=== PATIENT | female | born 1960 | race Caucasian/White ===

== ENCOUNTER 2019-11-25 15:15 | Emergency (ER) | payer OTHER, SELFPAY ==
--- NOTE | 2019-11-25 16:07 | PC.NURSE ---
Call for patient, other visitors state the patient is outside smoking.
--- NOTE | 2019-11-25 16:30 | PC.NURSE ---
Call to waiting room, no answer.
--- NOTE | 2019-11-25 17:05 | PC.NURSE ---
Call to triage for a third time. No answer. Assume patient left without being seen prior to triage.
== END 2019-11-25 16:07 | disposition left against medical advice (07) ==
LOC: ANHED 17:12
PROVIDERS: PCP Physician Assistant
DX: Z53.21 Procedure and treatment not carried out due to patient leaving prior to being seen by health care provider (principal)
CPT/HCPCS: 99199

== ENCOUNTER 2020-01-06 17:15 | Emergency (ER) | payer OTHER, SELFPAY ==
[2020-01-06 17:29] VITALS: BP 107/76; PULSE 140; RESP 18; TEMP 37; O2SAT 98
--- NOTE | 2020-01-06 17:40 | ED.GENADULT ---
HPI - General Adult General Chief complaint: Extremity Injury, Lower Stated complaint: swollen in bilateral leg Time Seen by Provider: 01/06/20 17:40 Source: patient and RN notes reviewed Mode of arrival: ambulatory (with 3.5L of portable O2) Limitations: no limitations History of Present Illness HPI narrative: 59-year-old female presents with complains of being out of prescription Lasix for 3 days that has caused her to have swelling to bilateral lower extremities and shortness of breath for the past 2 days. No treatment. Symptoms has increased throughout the day even with increasing oxygen to 3.5 liters and elevating lower extremities. History of CHF. No known injury. No radiation of pain. No numbness or tingling, drainage, or bleeding. No loss of mobility. Exacerbating factor consist of ambulation. No fever or chills. Denies chest pain, headache, recent long car rides. Remains active. The patient reports she have not been diagnosed with COVID-19. The patient reports she is not waiting for the results of a COVID-19 lab test. The patient reports she do not have fever, chills, weakness, or fatigue. The patient reports she do not have a new or worsening cough or shortness of breath. Denies chest pain. The patient reports she do not have any rhinorrhea, congestion, loss of taste, sore throat, nausea, vomiting, abdominal pain, and diarrhea. Tolerating po intake well. Denies recent traveling. Denies concerns for COVID-19 or exposures been home with limited outdoor exposure except for essential household needs, work, and return home. At this time, patient is not suspected of having COVID-19. Some parts of this dictation were generated by voice recognition software and may contain typographical and/or grammatical inaccuracies. Related Data Home Medications Medication Instructions Recorded Confirmed Oxygen 3l 01/06/20 digoxin 01/06/20 fluoxetine mg 01/06/20 furosemide 01/06/20 gabapentin 01/06/20 hydroxyzine pamoate 01/06/20 lisinopril 01/06/20 pramipexole mg 01/06/20 pravastatin 01/06/20 warfarin 01/06/20 Allergies Allergy/AdvReac Type Severity Reaction Status Date / Time Penicillins Allergy Swelling Verified 01/06/20 18:05 of Lip/Tongue/Throat tramadol Allergy Swelling Verified 01/06/20 18:04 of Lip/Tongue/Throat Review of Systems Review of Systems: Narrative: CONSTITUTIONAL: Denies fever, chills, sweats. EYES: Denies visual changes, redness, discharge. ENT: Denies rhinorrhea, congestion, sore throat, otalgia. CARDIOVASCULAR: Denies chest pain, palpitations. Complaints of bilateral lower extremities edema. RESPIRATORY: Denies wheezing, cough. Complains of dyspnea. GASTROINTESTINAL: Denies abdominal pain, nausea, vomiting, diarrhea. GENITOURINARY: Denies dysuria, hematuria, abnormal discharge. SKIN: Denies rash or itching. MUSCULOSKELETAL: Denies acute back pain, joint pain, or myalgia. NEUROLOGIC: Denies numbness or focal weakness. PSYCHIATRIC: Denies anxiety or depression. All other systems reviewed & are unremarkable except as noted in HPI and below. [facility] Past Medical History Medical History (Updated 01/06/20 @ 18:10 by ALTA Plummer) Asthma Bipolar disorder Bronchitis COPD (chronic obstructive pulmonary disease) History of manic depressive disorder Hypercholesteremia Hypertension MVP (mitral valve prolapse) Surgical History Surgical History (Updated 01/06/20 @ 18:10 by ALTA Plummer) History of heart surgery valve replaced Family History Family History (Updated 01/06/20 @ 18:12 by ALTA Plummer) Father , cancer Lymph node cancer Mother , cancer-unknown Cancer Sibling , Cancer Lymph node cancer Social History Social History (Updated 01/06/20 @ 18:13 by ALTA Plummer) Smoking packs per day: 0.5 Smoking cigarettes per day: 10.0 Years smoked: 45 Smoking pac
== END 2020-01-06 17:47 | disposition left against medical advice (07) ==
PROVIDERS: Emergency Provider Nurse Practitioner Family; PCP Physician Assistant
DX: R60.0 Localized edema (principal); I50.9 Heart failure, unspecified; I11.0 Hypertensive heart disease with heart failure; F17.210 Nicotine dependence, cigarettes, uncomplicated; J44.9 Chronic obstructive pulmonary disease, unspecified; E78.00 Pure hypercholesterolemia, unspecified; I34.9 Nonrheumatic mitral valve disorder, unspecified; F31.9 Bipolar disorder, unspecified
CPT/HCPCS: 99211; G0463

== ENCOUNTER 2020-01-06 19:34 | Emergency (ER) | payer OTHER, SELFPAY ==
--- NOTE | ~2020-01-06 | XR_ITS ---
EXAMINATION: XR chest 1V portable INDICATION: Shortness of breath, congestive heart failure TECHNIQUE: Portable AP chest at 2021 hours COMPARISON: None available FINDINGS: Cardiomegaly is noted. There is a moderate diffuse interstitial pattern. No pleural effusio n or pneumothorax is identified. Median sternotomy wires are consistent with prior cardiac surgery. IMPRESSION: 1. Cardiomegaly with moderate pulmonary edema. Reviewed, dictated and finalized at location A.
[2020-01-06 19:39] VITALS: BP 120/96; PULSE 109; RESP 18; TEMP 36.7; O2SAT 95
--- NOTE | 2020-01-06 20:07 | ECG_ITS ---
Measurements Intervals [place] Rate: 116 P: MI: 0 QRS: 47 QRSD: 80 T: 58 QT: 304 QTc: 423 Interpretive Statements ATRIAL FIBRILLATION WITH RAPID VENTRICULAR RESPONSE VENTRICULAR PREMATURE COMPLEX ABNORMAL ECG Electronically Signed On 01-07-2020 6:39:57 CDT by Ramón Morales D.O.
--- NOTE | 2020-01-06 20:11 | ED.SOB ---
HPI - SOB/Dyspnea General Chief Complaint: Upper Respiratory Infection Stated Complaint: increased leg swelling/sob with ambulation Time Seen by Provider: 01/06/20 19:37 History of Present Illness HPI Narrative: Pt c/o increasing bilat lower ext edema and sob on exertion x 2 days. Pt states she as a h/o CHF, COPD and atrial fib. Pt denies any chest pain, fever or cough. Related Data Home Medications Medication Instructions Recorded Confirmed Oxygen 3l 01/06/20 digoxin 01/06/20 fluoxetine mg 01/06/20 furosemide 01/06/20 gabapentin 01/06/20 hydroxyzine pamoate 01/06/20 lisinopril 01/06/20 pramipexole mg 01/06/20 pravastatin 01/06/20 warfarin 01/06/20 Allergies Allergy/AdvReac Type Severity Reaction Status Date / Time Penicillins Allergy Swelling Verified 01/06/20 18:05 of Lip/Tongue/Throat tramadol Allergy Swelling Verified 01/06/20 18:04 of Lip/Tongue/Throat Review of Systems Review of Systems: All systems reviewed & are unremarkable except as noted in HPI and below Constitutional: Constitutional: Denies body ache(s), Denies chills, Denies excessive sweating, Denies fatigue, Denies fever(s), Denies headache(s), Denies lethargy, Denies malaise, Denies weakness and Denies weight loss Eyes: Eyes: Denies blurry vision, Denies change in vision and Denies loss of vision ENT: Denies dizziness, Denies ear discharge, Denies headache(s), Denies lip swelling, Denies epistaxis, Denies nasal congestion, Denies neck pain, Denies throat swelling and Denies tongue swelling Cardiovascular: Cardiovascular: Denies chest pain, Denies chest pain at rest, Denies chest pain with activity, Denies diaphoresis, Denies lightheadedness, Denies palpitations, Denies dyspnea and Denies dyspnea on exertion Respiratory: Respiratory: Denies chest congestion, Denies cough and Denies hemoptysis Gastrointestinal: Gastrointestinal: Denies abdominal pain, Denies melena, Denies hematochezia, Denies diarrhea, Denies nausea, Denies vomiting and Denies hematemesis Musculoskeletal: Musculoskeletal: Denies abnormal gait, Denies deformity, Denies joint swelling, Denies limited range of motion, Denies neck pain and Denies numbness Neurologic: Denies Abnormal speech present, Denies abnormal gait, Denies confusion, Denies dizziness, Denies headache(s), Denies focal weakness, Denies loss of vision, Denies numbness, Denies Other visual disturbances, Denies Sensory deficit (Neuro) and Denies weakness Psychiatric: Psychiatric: Denies confusion, Denies depression, Denies auditory hallucinations, Denies homicidal ideation and Denies suicidal ideation Endocrine: Endocrine: Denies cold intolerance, Denies excessive sweating, Denies fatigue, Denies heat intolerance and Denies palpitations Hematologic/Lymphatic: Hematologic/Lymphatic: Denies easy bleeding and Denies easy bruising Allergic/Immunologic: Allergic/Immunologic: Denies lip swelling, Denies throat swelling and Denies tongue swelling PMF Past Medical History Medical History (Updated 01/06/20 @ 22:52 by Rubens Phillips MD) Asthma Bipolar disorder Bronchitis COPD (chronic obstructive pulmonary disease) History of manic depressive disorder Hypercholesteremia Hypertension MVP (mitral valve prolapse) Surgical History Surgical History (Updated 01/06/20 @ 18:10 by ALTA Plummer) History of heart surgery valve replaced Family History Family History (Updated 01/06/20 @ 18:12 by ALTA Plummer) Father , cancer Lymph node cancer Mother , cancer-unknown Cancer Sibling , Cancer Lymph node cancer Social History Social History (Updated 01/06/20 @ 18:13 by ALTA Plummer) Smoking packs per day: 0.5 Smoking cigarettes per day: 10.0 Years smoked: 45 Smoking pack-years: 22.50 Smoking status: Current every day smoker Tobacco type: cigarettes Second hand tobacco smoke exposure: Yes Alcoho
[2020-01-06] MEDS: dilTIAZem HCl INJ 25 MG/5 ML VIAL 10 MG IV PUSH (20:21)
[2020-01-06] MEDS: FUROSEMIDE INJ 40 MG/4 ML VIAL 20 MG IV PUSH ×2 (20:21→23:00)
[2020-01-06 20:48] LABS: Basophils Absolute Auto 0.1 K/mm3 (0.0-0.1); Basophils Percent Auto 0.5 % (0.2-1.2); Eosinophils Absolute Auto 0.2 K/mm3 (0-0.3); Eosinophils Percent Auto 1.8 % (0-4.4); Hematocrit 30.5 % (37.0-47.0); Hemoglobin 9.6 g/dL (12.0-15.0); Immature Granulocyte Absolute 0.06 K/mm3 (0.00-0.031); Immature Granulocyte Percent A 0.6 % (0-0.5); Lymphocytes Absolute Auto 1.25 K/mm3 (0.9-3.2); Lymphocytes Percent Auto 11.6 % (18.3-44.2); Mean Corpuscular HGB Conc 31.5 g/dl (32-36); Mean Corpuscular Hemoglobin 29.1 pg (26-34); Mean Corpuscular Volume 92.4 fl (80-100); Mean Platelet Volume 9.6 fl (7.4-10.4); Monocytes Absolute Auto 0.8 K/mm3 (0.1-0.6); Monocytes Percent Auto 7.1 % (2.6-8.5); Neutrophils Absolute Auto 8.5 K/mm3 (1.3-6.7); Neutrophils Percent Auto 78.4 % (45.5-73.1); Platelet Count Result 337 k/mm3 (150-375); Red Cell Distribution Width 15.1 % (11.5-14.5); White Blood Count 10.8 K/mm3 (4.5-10.0)
[2020-01-06 20:58] VITALS: BP 116/71; PULSE 97; RESP 18; O2SAT 97
[2020-01-06 20:58] LABS: INR 2.8; Prothrombin Time 29.3 Seconds (11.1-14.7)
[2020-01-06 20:59] LABS: Partial Thromboplastin Time 34.7 SECONDS (22.3-36.8)
[2020-01-06 21:09] LABS: NT Pro B Type Natriuretic Pept 1430 PG/ML (5-100)
[2020-01-06 21:11] LABS: Troponin I 0.019 ng/mL (0.000-0.034)
[2020-01-06 22:03] VITALS: BP 118/83; PULSE 109; RESP 20; O2SAT 100
[2020-01-06 22:23] LABS: Alanine Aminotransferase 32 U/L (4-35); Albumin Level 4.2 g/dL (3.5-5.1); Alkaline Phosphatase 90 U/L (38-126); Anion Gap 5 mmol/L (8-16); Aspartate Amino Transferase 39 U/L (14-36); Bilirubin,Total 0.6 mg/dL (0.2-1.3); Blood Urea Nitrogen 21 mg/dL (7-17); Calcium 9.4 mg/dL (8.4-10.2); Carbon Dioxide 25 mmol/L (22-30); Chloride 104 mmol/L (98-107); Estimated CRCL calculation 71 ml/min; Estimated Glomerular Filt Rate > 60; Glucose 95 mg/dL (65-105); Potassium 3.8 mmol/L (3.4-5.0); Sodium 134 mmol/L (137-145)
[2020-01-06 23:06] VITALS: BP 108/72; PULSE 102; RESP 20; TEMP 36.4; O2SAT 97
== END 2020-01-06 23:07 | disposition left against medical advice (07) ==
PROVIDERS: Emergency Provider Emergency Medicine; PCP Physician Assistant
DX: I11.0 Hypertensive heart disease with heart failure (principal); I50.9 Heart failure, unspecified; J44.9 Chronic obstructive pulmonary disease, unspecified; E78.5 Hyperlipidemia, unspecified; R00.0 Tachycardia, unspecified; I48.91 Unspecified atrial fibrillation; Z79.01 Long term (current) use of anticoagulants
CPT/HCPCS: 36415; 71045; 80053; 83880; 84484; 85025; 85610; 85730; 93005; 96374; 96375; 96376; 99284; J1940

== ENCOUNTER 2020-01-12 17:29 | Inpatient (IN) | payer OTHER, SELFPAY ==
[2020-01-12] VITALS (17 sets, daily range): BP systolic 113–147; BP diastolic 66–99; PULSE 94–154; RESP 18–30; TEMP 36.5–36.9; O2SAT 97–100; BMI 30.7
--- NOTE | ~2020-01-12 | CT_ITS ---
EXAMINATION: CTA chest PE protocol DATE: 01/12/2020 20:45 INDICATION: Shortness of breath. Elevated d-dimer. TECHNIQUE: Computed tomography (CT) pulmonary angiogram of the chest was performed with 100 mL Omnipa que-350 intravenous contrast. The IV disconnected resulting in significant leakage of contrast on the first set of imaging. It is estimated that approximately 50 mL of the contrast bolus leaked resultin g in poor contrast opacification. Repeat CT images were obtained following demonstration of an additi onal 100 mL Omnipaque 350 intravenous contrast. Additional 3D reconstructions utilizing coronal maxim um intensity projection (MIP) were performed. Automated exposure control and iterative reconstruction technique were employed. The dose-length product was 900.80 mGy-cm. COMPARISON: None FINDINGS: Excellent contrast opacification of the pulmonary arteries on the second set of images with mild scat tered respiratory motion artifact which only mildly decreases sensitivity in some of the smaller subs egmental pulmonary arteries. No pulmonary embolism identified. Crazy paving pattern throughout both l ungs with mosaic attenuation and smooth septal line thickening most likely related to moderate pulmon jose luis edema. No pleural effusion or pneumothorax. Cardiomegaly. No pericardial effusion. Median sternot tonia and mitral valve repair. Aortic valve calcification. Lymphadenopathy most prominent in the medias tinum but also at the bilateral carolyn, along the bilateral jugular chains and at the left axilla. For reference there are a pair of right paratracheal lymph nodes measuring 3.3 x 2.8 cm and 3.1 x 2.2 cm. Thoracic aorta is normal in caliber with no dissection. Small sliding-type hiatal hernia. Visualized bones and upper abdomen are unremarkable. IMPRESSION: 1. No pulmonary embolism. 2. Groundglass opacities and smooth septal line thickening throughout the lungs consistent with moder ate pulmonary edema although superimposed pneumonia not excludable. 3. Mediastinal predominant thoracic lymphadenopathy raising concern for lymphoma. Differential would include reactive lymphadenopathy or other metastatic disease. Would consider further CT imaging of th e abdomen and pelvis and ultrasound-guided biopsy of one of the cervical or left axillary lymph nodes . 4. Cardiomegaly with change of prior mitral valve repair. Reviewed, dictated and finalized at location A. IMPRESSION: 1. No pulmonary embolism. 2. Groundglass opacities and smooth septal line thickening throughout the lungs consistent with moderate pulmonary edema although superimposed pneumonia not e xcludable. 3. Mediastinal predominant thoracic lymphadenopathy raising concern for lymphom a. Differential would include reactive lymphadenopathy or other metastatic dise ase. Would consider further CT imaging of the abdomen and pelvis and ultrasound -guided biopsy of one of the cervical or left axillary lymph nodes. 4. Cardiomegaly with change of prior mitral valve repair.
--- NOTE | ~2020-01-12 | XR_ITS ---
EXAMINATION: XR chest 1V portable DATE: 01/13/2020 17:06 INDICATION: COPD presenting with shortness of breath TECHNIQUE: frontal view of the chest was obtained. COMPARISON: Chest radiograph and CT dated 01/12/2020 FINDINGS: Kensinger mild opacities in the bilateral mid and lower lung zones. No pleural effusion or pneumothor ax. Cardiomegaly. Median sternotomy wires and mediastinal surgical clips are seen, likely from prior coronary artery bypass grafting. IMPRESSION: 1. Unchanged opacities in the mid to lower lung zones with appearance on prior CT favoring pulmonary edema over pneumonia. 2. Cardiomegaly. Reviewed, dictated and finalized at location A.
--- NOTE | ~2020-01-12 | XR_ITS ---
EXAMINATION: XR chest 2V DATE: 01/12/2020 18:37 INDICATION: Shortness of breath TECHNIQUE: frontal and lateral views of the chest were obtained. COMPARISON: Chest radiograph dated 01/06/2020 FINDINGS: Perihilar and infrahilar interstitial opacities. No pleural effusion or pneumothorax. Cardiomegaly. M fredian sternotomy wires and mediastinal surgical clips are seen, likely from prior coronary artery byp ass grafting. Bones and soft tissues are unremarkable. IMPRESSION: 1. Perihilar and infrahilar opacities could represent congestive heart failure related mild pulmonary edema, active airway disease, bronchitis or pneumonia. 2. Cardiomegaly. Reviewed, dictated and finalized at location A.
--- NOTE | 2020-01-12 17:35 | ECG_ITS ---
Measurements Intervals [place] Rate: 128 P: NC: 0 QRS: 32 QRSD: 80 T: 32 QT: 313 QTc: 457 Interpretive Statements ATRIAL FIBRILLATION WITH RAPID VENTRICULAR RESPONSE BASELINE WANDER- I, II, III, AVF, V1, V5-V6 ABNORMAL ECG Electronically Signed On 01-12-2020 21:05:12 CDT by Ramón Morales D.O.
[2020-01-12 17:54] LABS: Basophils Absolute Auto 0.1 K/mm3 (0.0-0.1); Basophils Percent Auto 0.5 % (0.2-1.2); Eosinophils Absolute Auto 0.2 K/mm3 (0-0.3); Eosinophils Percent Auto 1.8 % (0-4.4); Hematocrit 29.5 % (37.0-47.0); Hemoglobin 9.5 g/dL (12.0-15.0); Immature Granulocyte Absolute 0.04 K/mm3 (0.00-0.031); Immature Granulocyte Percent A 0.4 % (0-0.5); Lymphocytes Absolute Auto 1.45 K/mm3 (0.9-3.2); Lymphocytes Percent Auto 13.8 % (18.3-44.2); Mean Corpuscular HGB Conc 32.2 g/dl (32-36); Mean Corpuscular Hemoglobin 29.6 pg (26-34); Mean Corpuscular Volume 91.9 fl (80-100); Mean Platelet Volume 9.8 fl (7.4-10.4); Monocytes Absolute Auto 0.9 K/mm3 (0.1-0.6); Monocytes Percent Auto 8.6 % (2.6-8.5); Neutrophils Absolute Auto 7.8 K/mm3 (1.3-6.7); Neutrophils Percent Auto 74.9 % (45.5-73.1); Platelet Count Result 342 k/mm3 (150-375); Red Blood Count 3.21 M/mm3 (4.2-5.4); Red Cell Distribution Width 15.2 % (11.5-14.5); White Blood Count 10.5 K/mm3 (4.5-10.0)
[2020-01-12] MEDS: dilTIAZem HCl INJ 25 MG/5 ML VIAL 10 MG IV PUSH (18:10)
[2020-01-12 18:17] LABS: D Dimer 0.52 ug/mL (<0.48)
[2020-01-12 18:35] LABS: Anion Gap 7 mmol/L (8-16); Blood Urea Nitrogen 14 mg/dL (7-17); Calcium 9.4 mg/dL (8.4-10.2); Carbon Dioxide 24 mmol/L (22-30); Chloride 104 mmol/L (98-107); Estimated CRCL calculation 73 ml/min; Estimated Glomerular Filt Rate > 60; Glucose 115 mg/dL (65-105); Potassium 3.5 mmol/L (3.4-5.0); Sodium 135 mmol/L (137-145)
--- NOTE | 2020-01-12 19:14 | ED.GENADULT ---
HPI - General Adult General Chief complaint: Shortness of Breath/Dyspnea Stated complaint: SOB Time Seen by Provider: 01/12/20 17:42 Source: patient and EMS Mode of arrival: EMS History of Present Illness HPI narrative: 59 years old white female presents with increased shortness of breath over the last 2 days. Currently patient on 3 L of oxygen, quit smoking 3 days ago, history of COPD and CHF and A. fib, on Coumadin. Patient denies any fever, chills, nausea, vomiting, chest pain, headache, abdominal pain or back pain. Related Data Home Medications Medication Instructions Recorded Confirmed Oxygen 3l 01/06/20 digoxin 250 mcg PO DAILY 01/06/20 fluoxetine 20 mg PO 01/06/20 furosemide 40 mg PO 01/06/20 gabapentin 100 mg PO 01/06/20 hydroxyzine pamoate 25 mg PO 01/06/20 lisinopril 2.5 mg PO 01/06/20 pramipexole 0.125 mg PO 01/06/20 pravastatin 20 mg PO 01/06/20 warfarin 5 mg PO 01/06/20 Allergies Allergy/AdvReac Type Severity Reaction Status Date / Time Penicillins Allergy Swelling Verified 01/12/20 17:38 of Lip/Tongue/Throat tramadol Allergy Swelling Verified 01/12/20 17:38 of Lip/Tongue/Throat Review of Systems Review of Systems: Narrative: CONSTITUTIONAL: Denies fever, chills, or sweats. EYES: Denies visual changes, redness, or discharge. ENT: Denies rhinorrhea, congestion, sore throat, or otalgia. CARDIOVASCULAR: Denies chest pain, palpitations, or edema. RESPIRATORY: Denies cough or dyspnea. GASTROINTESTINAL: Denies abdominal pain, nausea, vomiting, or diarrhea. GENITOURINARY: Denies dysuria or hematuria. SKIN: Denies rash or itching. MUSCULOSKELETAL: Denies back pain, joint pain, or myalgia. NEUROLOGIC: Denies headache, numbness, or weakness. PSYCHIATRIC: Denies anxiety or depression. [facility] Past Medical History Medical History Asthma Bipolar disorder Bronchitis COPD (chronic obstructive pulmonary disease) History of manic depressive disorder Hypercholesteremia Hypertension MVP (mitral valve prolapse) Surgical History Surgical History History of heart surgery valve replaced Family History Family History Father , cancer Lymph node cancer Mother , cancer-unknown Cancer Sibling , Cancer Lymph node cancer Social History Social History Smoking packs per day: 0.5 Smoking cigarettes per day: 10.0 Years smoked: 45 Smoking pack-years: 22.50 Smoking status: Current every day smoker Tobacco type: cigarettes Second hand tobacco smoke exposure: Yes Alcohol intake: current Substance use: never Additional occupation/education comments: disable Gender identity (if verbalized by the patient): Female Exam Narrative: Exam Narrative: General appearance: Well-developed, well-nourished, very anxious, no significant other at the bedside Skin: Normal color, 1+ edema lower extremity bilaterally Head: Normocephalic, nontraumatic Eyes: Clear conjunctiva ENT: Oropharynx normal, ears normal, nose normal Neck: Supple, nontender Chest and respiratory: Airway patent, no respiratory distress, no accessory muscle use Heart: Tachycardia, irregular irregularity Abdomen: Soft, nontender, no organomegaly, quiet bowel sounds Vascular: Normal peripheral pulses, normal capillary refill. Musculoskeletal: Normal range of motion, nontender back Neurologic: Alert and oriented ?3, [employer] is normal as tested, no gross motor deficit Course Course Emergency [facility]
[2020-01-12 19:48] LABS: NT Pro B Type Natriuretic Pept 1740 PG/ML (5-100)
--- NOTE | 2020-01-12 20:11 | PM.IMHP ---
H&P: HPI History of Present Illness Date/Time: 01/12/20 20:11 Chief complaint: A. fib with RVR, CHF, COPD, anxiety Narrative: This is a pleasant 59 year old female with known chronic atrial fibrillation on chronic coumadin therapy, COPD, chronic respiratory failure on 3L of oxygen who presented to the hospital with increased exertional shortness of breath over the past 2 days. She was seen in the ER 5 days ago and diagnosed with pulmonary edema and LEFT AGAINST MEDICAL ADVICE. Today she denies any fever, chills, nausea, vomiting, cough, chest pain, wheezing, abdominal pain, dysuria, hematuria, diarrhea, or rectal bleeding. The patient admits to me that she missed 3 days of her coumadin therapy last week. The patient was evaluated in the ER tonight and found to be in rapid atrial fibrillation. ER provider obtained a d-dimer which was also elevated. CTA chest for pulmonary embolism has not been obtained yet. Patient has no other complaints at this time. Patient has been started on Cardizem IV for rate control. Review of Systems Review of Systems: All systems reviewed & are unremarkable except as noted in HPI and below PMFSH Past Medical History Medical History Asthma Bipolar disorder Bronchitis COPD (chronic obstructive pulmonary disease) History of manic depressive disorder Hypercholesteremia Hypertension MVP (mitral valve prolapse) Surgical History Surgical History History of coronary artery stent placement History of heart surgery valve replaced Family History Family History Father , cancer Lymph node cancer Mother , cancer-unknown Cancer Sibling , Cancer Lymph node cancer Social History Social History Smoking packs per day: 0.5 Smoking cigarettes per day: 10.0 Years smoked: 40 Smoking pack-years: 20.00 Smoking status: Current every day smoker Tobacco type: cigarettes Second hand tobacco smoke exposure: Yes Alcohol intake: never Substance use: never Additional occupation/education comments: disable Gender identity (if verbalized by the patient): Female Spiritual care concerns: No Meds Home Medications and Allergies Home Medications Medication Instructions Recorded Confirmed Type digoxin 250 mcg PO DAILY 01/06/20 01/12/20 History fluoxetine 20 mg PO DAILY 01/06/20 01/12/20 History furosemide 40 mg PO DAILY 01/06/20 01/12/20 History gabapentin 100 mg PO TID 01/06/20 01/12/20 History hydroxyzine pamoate 25 mg PO DAILY 01/06/20 01/12/20 History lisinopril 2.5 mg PO DAILY 01/06/20 01/12/20 History pramipexole 0.125 mg PO DAILY 01/06/20 01/12/20 History pravastatin 20 mg PO DAILY 01/06/20 01/12/20 History warfarin 5 mg PO DAILY 01/06/20 01/12/20 History Allergies Allergy/AdvReac Type Severity Reaction Status Date / Time Penicillins Allergy Swelling Verified 01/12/20 17:38 of Lip/Tongue/Throat tramadol Allergy Swelling Verified 01/12/20 17:38 of Lip/Tongue/Throat Vital Signs Vital Signs - 24 hr 01/12/20 17:27 01/12/20 17:36 01/12/20 18:02 Temperature 36.9 C Pulse Rate 154 H 128 H 132 H Respiratory Rate 25 H 22 H Blood Pressure 113/99 H 123/94 H Pulse Oximetry 100 100 01/12/20 18:16 01/12/20 18:36 01/12/20 18:46 Temperature Pulse Rate 114 H 114 H 98 Respiratory Rate 18 19 18 Blood Pressure 117/84 116/90 114/97 H Pulse Oximetry 100 100 01/12/20 19:01 01/12/20 19:16 Temperature Pulse Rate 106 H 111 H Respiratory Rate 19 18 Blood Pressure 118/80 135/94 H Pulse Oximetry 100 Exam Const: General: cooperative, no acute distress, alert and awake Nutritional Appearance: obese Orientation/consciousness: patient oriented x3 HENMT: Head: normal to inspection Gene
[2020-01-12] MEDS: FUROSEMIDE INJ 40 MG/4 ML VIAL IV PUSH (20:15)
--- NOTE | 2020-01-12 20:28 | PC.NURSE ---
Daughter Lissette Denise [phone] sifuentes to call her when the pt is moved to her room
[2020-01-12 20:58] LABS: INR 3.7; Prothrombin Time 36.1 Seconds (11.1-14.7)
[2020-01-12] MEDS: dilTIAZem HCl INJ 25 MG/5 ML VIAL (22:24)
[2020-01-12] MEDS: LORazepam INJ (*CRX) 2 MG/ML VIAL 1 MG IV PUSH (22:24)
--- NOTE | 2020-01-12 22:52 | ADMGEN ---
This patient, Angeles Fraire, was admitted to IMU Room 207-01. Patient/family oriented to hospital policies and general routines including ID bracelet, bed and alarms, visiting hours, pain management, procedures, bathroom and other care routines, personal items, smoking policy, room service/diet, and visiting hours. Valuables list has been completed. Information on how to activate the Rapid Response Team has been discussed. Patient/Family are encouraged to report perceived risks to care and to ask questions if they do not understand what they are told or what they should do.
[2020-01-13] VITALS (20 sets, daily range): BP systolic 96–131; BP diastolic 49–77; PULSE 81–105; RESP 18–24; TEMP 36.2–36.7; O2SAT 96–100
--- NOTE | 2020-01-13 | ECHO_ITS ---
Patient Info Name: Angeles Fraire Age: 59 years : 1960 Gender: Female Ht: 61 in Wt: 186 lbs BSA: 1.95 m2 HR: 89 bpm BP: 107 / 67 mmHg Heart Rhythm: Atrial Fibrillation Technical Quality: Good Exam Date: 01/13/2020 1:48 PM Exam Location: [facility] Patient Status: Inpatient Admit Date: 01/12/2020 Staff Ordering Physician: Jhon Beverly MD Search Engine Marketing Specialist: Lionel Quinonez, DAVI, RT Attending Provider: Brayden Sykes MD Exam Type: CA echo dop color flow w con Study Info Indications Z95.2 - Presence of prosthetic heart valve Complete two-dimensional, color flow and Doppler transthoracic echocardiogram is performed with contrast to opacify the left ventricle and to improve the deliniation of the left ventricle endocardial borders. Summary 1. Left ventricular systolic function is lower limits of normal, estimated at 50-55%. 2. E/e' 40.42 is severely elevated. 3. Left atrial chamber dimension is moderately enlarged. 4. The mechanical mitral valve leaflefts are not well visualized, however, leaflet excursion appears to be intact. Unable to estimate regurgitation due to reverberation artifact. 5. There is severe tricuspid valve regurgitation. 6. Severe pulmonary hypertension, estimated pulmonary arterial systolic pressure is 66 mmHg. 7. There is severe aortic valve stenosis with a peak velocity of 416.72 cm/s, mean gradient of 41 mmHg, and aortic valve area of 0.64 cm2. 8. There is mild aortic valve regurgitation. Left Ventricle Left ventricular systolic function is lower limits of normal, estimated at 50-55%. Left ventricular chamber dimension is normal. There is no increased left ventricular wall thickness. The left ventricular diastolic function is indeterminate. E/e' 40.42 is severely elevated. Right Ventricle Right ventricular chamber dimension is normal. Right ventricular systolic function is normal. Left Atria Left atrial chamber dimension is moderately enlarged. Right Atria Right atrial chamber dimension is mildly enlarged. Aortic Valve The aortic valve is trileaflet. There is severe aortic valve stenosis with a peak velocity of 416.72 cm/s, mean gradient of 41 mmHg, and aortic valve area of 0.64 cm2. There is mild aortic valve regurgitation. There is severe aortic valve calcification. Pulmonic Valve The pulmonic valve is normal. There is mild pulmonic regurgitation. Mitral Valve The mechanical mitral valve leaflefts are not well visualized, however, leaflet excursion appears to be intact. Unable to estimate regurgitation due to reverberation artifact. Tricuspid Valve The tricuspid valve leaflets are normal. There is severe tricuspid valve regurgitation. Severe pulmonary hypertension, estimated pulmonary arterial systolic pressure is 66 mmHg. Pericardium/Pleural The pericardium appears normal. There is no pericardial effusion. Inferior Vena Cava Dilated inferior vena cava with no collapse upon inspiration consistent with significantly elevated right atrial pressure, 15 mmHg. Aorta The aortic root size at the sinus of Valsalva is normal. There is severe aortic atherosclerosis. Left Ventricular Outflow Tract Name Value Normal LVOT 2D LVOT Diameter 1.97
[2020-01-13 03:34] LABS: Troponin I 0.022 ng/mL (0.000-0.034)
--- NOTE | 2020-01-13 08:47 | PM.CNCAR ---
Assessment and Plan Assessment and plan (1) Atrial fibrillation with rapid ventricular response: Code(s): I48.91 - Unspecified atrial fibrillation Status: Acute Assessment and Plan: 59-year-old female with history of mechanical mitral valve replacement (in 1991 in [place], [place] as per patient, operative report not available) and persistent atrial fibrillation on chronic anticoagulation with warfarin; COPD, chronic respiratory failure on 3L of oxygen, anxiety/depression, tobacco abuse. Patient presents with worsening shortness of breath, found to be in atrial fibrillation RVR, CHF, and acute worsening of chronic COPD. -current heart rates are in 90s, continue IV diltiazem, to be bridged to p.o. diltiazem or beta-diamond. Will check echocardiogram to assess LV function, mitral valve prosthesis. The choice of AV marla diamond will depend on patient's LV function. -continue p.o. digoxin for now -patient has been on chronic anticoagulation with warfarin -patient was advised to follow up in the outpatient cardiology clinic to reestablish cardiovascular care. She also needs to establish care with a primary care physician, and regional sales leader. (2) History of mitral valve replacement with mechanical valve: Code(s): Z95.2 - Presence of prosthetic heart valve Status: Acute Assessment and Plan: Check echocardiogram Continue anticoagulation with warfarin, target INR 2.5-3.5. Ideally, patient needs to be on low-dose aspirin regimen as well. (3) Congestive heart failure: Qualifiers: Heart failure chronicity: unspecified Heart failure type: unspecified Qualified Code(s): I50.9 - Heart failure, unspecified Code(s): I50.9 - Heart failure, unspecified Status: Acute Assessment and Plan: Continue diuresis with furosemide Check echocardiogram (4) COPD (chronic obstructive pulmonary disease): Qualifiers: COPD type: unspecified COPD Qualified Code(s): J44.9 - Chronic obstructive pulmonary disease, unspecified Code(s): J44.9 - Chronic obstructive pulmonary disease, unspecified Status: Chronic Assessment and Plan: Supplemental oxygen Patient advised to quit smoking (5) Tobacco abuse: Code(s): Z72.0 - Tobacco use Status: Acute Assessment and Plan: Smoking cessation counseling was done History of Present Illness History of Present Illness Consult date/time: 01/13/20 08:47 Date of service: 01/13/2020 Reason for consult: AFib with RVR Requesting physician:Dr Sykes Chief complaint: Worsening shortness of breath HPI: 59-year-old female with history of mechanical mitral valve replacement (in 1991 in [place], [place] as per patient, operative report not available) and persistent atrial fibrillation on chronic anticoagulation with warfarin; COPD, chronic respiratory failure on 3L of oxygen, anxiety/depression, tobacco abuse. Patient is originally from [place], [place]. She states that she moved to local area about a year ago to be with her friends. She has history of mechanical mitral valve replacement, and persistent atrial fibrillation, and has been on chronic anticoagulation with warfarin. She reports that she has not had regular follow-up with a insurance sales supervisor over the years. She presented to the [facility] on 01/12/2020 with worsening exertional shortness of breath over the past 2 days. She was seen in the ER on 01/06/2020 and left against medical advise. Patient has baseline dyspnea on exertion, able to walk heart block before she gets short of breath. No chest pain. No palpitation, dizziness or syncope. Patient's heart rate was elevated in the ER in 150s, blood pressure 113/99, respiratory rate 25, saturating 100% on supplemental oxygen. EKG on admission which I personally evaluated showed atrial fibrillation with RVR, ventricular rate 128 beats per minute. Prior EKG from 01/06/2020 also showed AFib with RVR. Daniel
[2020-01-13] MEDS: GABAPENTIN 100 MG CAPSULE PO ×3 (09:14→16:05)
[2020-01-13] MEDS: PRAMIPEXOLE 0.125 MG TABLET PO (09:14)
[2020-01-13] MEDS: PRAVASTATIN SODIUM 20 MG TABLET PO (09:14)
[2020-01-13] MEDS: FUROSEMIDE INJ 40 MG/4 ML VIAL IV PUSH ×2 (09:14→16:41)
[2020-01-13] MEDS: FLUoxetine HCL 20 MG CAPSULE PO (09:14)
[2020-01-13] MEDS: DIGOXIN 250 MCG TABLET PO (09:14)
[2020-01-13 09:22] LABS: Troponin I 0.027 ng/mL (0.000-0.034)
[2020-01-13] MEDS: ALPRAZolam (*CRX) 0.25 MG TABLET PO (13:04)
[2020-01-13] MEDS: PERFLUTREN LIPID MICROSPHERES 1.5 ML VIAL DILUTED TO 10 ML TOTAL VOLUME IV PUSH (14:28)
[2020-01-13] MEDS: WARFARIN (*PBKC) 4 MG TABLET PO (16:05)
[2020-01-13] MEDS: IPRATROPIUM BR 0.02% INH SOLN 0.5 MG/2.5 ML VIAL INHALATION (16:36)
[2020-01-13] MEDS: ALBUTEROL SULFATE NEB 2.5 MG/0.5 ML INH INHALATION (16:37)
[2020-01-13] MEDS: methylPREDNISolone SOD SUCC 125 MG VIAL IV PUSH (16:41)
[2020-01-13 16:45] LABS: Alveolar/Arterial O2 Gradient 76.5 mmHg; Base Excess ABG 1.4 mEq/l (+/-2.0); Device NASAL CANNULA; Fractional Inspired Oxygen 32 %; HCO3 ABG 25.2 mEq/l (22.0-26.0); Modified Allen's Test Pass; Oxygen Content ABG 14.5 %vol (16.0-22.0); Oxygen Saturation ABG 98.2 % (95.0-100.0); Oxyhemoglobin 96.9 % THb (90.0-100.0); PCO2 ABG 36.8 mmHg (35.0-45.0); PO2 ABG 108.6 mmHg (80.0-100.0); PO2 FiO2 Ratio Arterial Blood 3.39 %; Site Drawn RIGHT RADIAL; Total Hemoglobin 10.5 g/dL (12.0-18.0); pH ABG 7.454 (7.350-7.450)
[2020-01-13 17:00] LABS: Glucose Point of Care 112 (65-105)
--- NOTE | 2020-01-13 17:01 | PM.IMPN ---
Progress Note: A&P Assessment and Plan (1) Atrial fibrillation with rapid ventricular response: Code(s): I48.91 - Unspecified atrial fibrillation Status: Acute Assessment and Plan: Acute rapid atrial fibrillation it may be secondary to acute CHF exacerbation. Admit to IMU, telemetry, continue diltiazem IV drip for rate control overnight. Check TSH reflex T4, echocardiogram in a.m.. We will trend troponin to rule out concomitant acute coronary syndrome. The patient is already anticoagulated on Coumadin. Monitor PT INR. Continue Coumadin therapy. Continue digoxin therapy.Cardiology consultation in a.m.. 01/13/20 17:01 patient is 59-year-old female recently moved from [place] with history prosthetic mechanical mitral valve replacement on Coumadin for anticoagulation will monitor , patient has history of atrial fibrillation, COPD, CHF patient presented emergency department with shortness or breath and was found to have atrial fibrillation with RVR and started the patient on diltiazem drip and her heart rate is trending down to 90 patient is seen atomic spectroscopist and been stable heart rate will switch her over to oral medication, today patient had cardiac echo showed ejection fraction of 50-55% and indeterminate diastolic dysfunction, patient also has a history of chronic respiratory failure on 3 L oxygen, and history of COPD unfortunately patient still smoke, this afternoon patient was somnolent patient was evaluated and her lungs sounded with wheezing rales and rhonchi with fair air entry. ABG was done which showed pH of 7.454, CO2 36.8 and oxygen saturation of 108.6 on 3 L, patient is given IV Lasix 40 mg, Solu-Medrol 125 minutes and DuoNeb will continue to monitor and follow up on chest x-ray, patient also had a complaint of sore throat it does appears erythematous will start the patient on doxycycline (2) Acute CHF: Qualifiers: Heart failure type: unspecified Qualified Code(s): I50.9 - Heart failure, unspecified Code(s): I50.9 - Heart failure, unspecified Status: Acute Assessment and Plan: sodium prudent fluid restricted diet. Monitor fluid status. Continue Lasix therapy. CHF teaching. (3) Elevated d-dimer: Code(s): R79.89 - Other specified abnormal findings of blood chemistry Status: Acute Assessment and Plan: We will obtain a CTA with PE protocol to rule out acute pulmonary embolism. (4) COPD (chronic obstructive pulmonary disease): Qualifiers: COPD type: unspecified COPD Qualified Code(s): J44.9 - Chronic obstructive pulmonary disease, unspecified Code(s): J44.9 - Chronic obstructive pulmonary disease, unspecified Status: Chronic Assessment and Plan: We will use Xopenex as bronchodilator as the patient has rapid atrial fibrillation. (5) Hypertension: Qualifiers: Hypertension type: unspecified Qualified Code(s): I10 - Essential (primary) hypertension Code(s): I10 - Essential (primary) hypertension Status: Chronic Assessment and Plan: Monitor blood pressure. Continue home antihypertensives. (6) Hypercholesteremia: Code(s): E78.00 - Pure hypercholesterolemia, unspecified Status: Chronic Assessment and Plan: Continue pravastatin. Subjective Date/time seen: 01/13/20 17:01 patient is 59-year-old female recently moved from [place] with history prosthetic mechanical mitral valve replacement on Coumadin for anticoagulation will monitor , patient has history of atrial fibrillation, COPD, CHF patient presented emergency department with shortness or breath and was found to have atrial fibrillation with RVR and started the patient on diltiazem drip and her heart rate is trending down to 90 patient is seen atomic spectroscopist and been stable heart rate will switch her over to oral medication, today patient had cardiac echo showed ejection fraction of 50-55% and indeterminate diastolic d
[2020-01-13] MEDS: PHENOL/SOD PHENO SPRAY CHERRY (*BKC) 1 SPRAY MUCOUS MEM (17:44)
[2020-01-14] VITALS (21 sets, daily range): BP systolic 93–123; BP diastolic 61–83; PULSE 75–103; RESP 20–22; TEMP 35.7–36.7; O2SAT 96–100
[2020-01-14] MEDS: methylPREDNISolone SOD SUCC 125 MG VIAL 60 MG IV PUSH ×4 (01:07→17:28)
[2020-01-14 06:35] LABS: Hematocrit 30.9 % (37.0-47.0); Hemoglobin 9.7 g/dL (12.0-15.0); Mean Corpuscular HGB Conc 31.4 g/dl (32-36); Mean Corpuscular Hemoglobin 28.9 pg (26-34); Mean Platelet Volume 9.9 fl (7.4-10.4); Platelet Count Result 361 k/mm3 (150-375); Red Blood Count 3.36 M/mm3 (4.2-5.4); White Blood Count 6.8 K/mm3 (4.5-10.0)
[2020-01-14 06:40] LABS: INR 4.6; Prothrombin Time 42.5 Seconds (11.1-14.7)
[2020-01-14 06:49] LABS: Anion Gap 12 mmol/L (8-16); Blood Urea Nitrogen 23 mg/dL (7-17); Calcium 9.4 mg/dL (8.4-10.2); Carbon Dioxide 29 mmol/L (22-30); Chloride 101 mmol/L (98-107); Estimated CRCL calculation 52 ml/min; Estimated Glomerular Filt Rate 57; Glucose 154 mg/dL (65-105); Magnesium 1.6 mg/dL (1.6-2.3); Potassium 3.9 mmol/L (3.4-5.0); Sodium 142 mmol/L (137-145)
[2020-01-14] MEDS: PRAVASTATIN SODIUM 20 MG TABLET PO (09:15)
[2020-01-14] MEDS: DIGOXIN 250 MCG TABLET PO (09:15)
[2020-01-14] MEDS: GABAPENTIN 100 MG CAPSULE PO ×3 (09:16→17:28)
[2020-01-14] MEDS: FLUoxetine HCL 20 MG CAPSULE PO (09:16)
[2020-01-14] MEDS: PRAMIPEXOLE 0.125 MG TABLET PO (09:16)
[2020-01-14] MEDS: FUROSEMIDE INJ 40 MG/4 ML VIAL IV PUSH (09:17)
--- NOTE | 2020-01-14 11:50 | PM.PNCARD ---
Progress Note: A&P Assessment and Plan (1) Atrial fibrillation with rapid ventricular response: Code(s): I48.91 - Unspecified atrial fibrillation Status: Acute Assessment and Plan: 59-year-old female with history of mechanical mitral valve replacement (in 1991 in [place], [place] as per patient, operative report not available) and persistent atrial fibrillation on chronic anticoagulation with warfarin; COPD, chronic respiratory failure on 3L of oxygen, anxiety/depression, tobacco abuse. She presented with worsening shortness of breath, found to be in atrial fibrillation RVR, CHF, and acute worsening of chronic COPD. Echo 01/13/2020: 1. Left ventricular systolic function is lower limits of normal, estimated at 50-55%. 2. E/e' 40.42 is severely elevated. 3. Left atrial chamber dimension is moderately enlarged. 4. The mechanical mitral valve leaflefts are not well visualized, however, leaflet excursion appears to be intact. Unable to estimate regurgitation due to reverberation artifact. 5. There is severe tricuspid valve regurgitation. 6. Severe pulmonary hypertension, estimated pulmonary arterial systolic pressure is 66 mmHg. 7. There is severe aortic valve stenosis with a peak velocity of 416.72 cm/s, mean gradient of 41 mmHg, and aortic valve area of 0.64 cm2. 8. There is mild aortic valve regurgitation. Heart rate is controlled on IV diltiazem. Blood pressure on the soft side. Will discontinue the drip. Would like to transition her to oral diltiazem but will wait until the IV diltiazem has time to wash out. Recheck blood pressure this afternoon. Likely will start on short-acting and transition to long-acting diltiazem in the morning. She may have gotten a little dry as she is diuresed very well. Continue p.o. digoxin for now. She is on chronic anticoagulation with warfarin. Will arrange follow-up in our office with Dr Beverly. Our office will also follow her INRs. She also needs to establish care with a primary care physician, and employment specialist/program manager. (2) History of mitral valve replacement with mechanical valve: Code(s): Z95.2 - Presence of prosthetic heart valve Status: Acute Assessment and Plan: Echo as above. Continue anticoagulation with warfarin, target INR 2.5-3.5. INR elevated to 4.6 today. Will hold warfarin today. Check INR in the morning. May still need to decrease her dose. Would not hold her warfarin more than 1 day due to her mechanical mitral valve.She admits that she has not checked her INR in quite some time. Ideally, patient needs to be on low-dose aspirin regimen as well (3) Congestive heart failure: Qualifiers: Heart failure chronicity: unspecified Heart failure type: unspecified Qualified Code(s): I50.9 - Heart failure, unspecified Code(s): I50.9 - Heart failure, unspecified Status: Acute Assessment and Plan: Echocardiogram as above. She has put out more than 7 L on the IV diuretics. She may have gotten a little dry. With her severe aortic stenosis need to avoid hypotension. Stop IV diuretics and discontinue fluid restriction for now. (4) COPD (chronic obstructive pulmonary disease): Qualifiers: COPD type: unspecified COPD Qualified Code(s): J44.9 - Chronic obstructive pulmonary disease, unspecified Code(s): J44.9 - Chronic obstructive pulmonary disease, unspecified Status: Chronic Assessment and Plan: Supplemental oxygen Smoking cessation again advised. (5) Tobacco abuse: Code(s): Z72.0 - Tobacco use Status: Acute Assessment and Plan: Smoking cessation counseling was done Additional Plan Plan discussed with Dr Chase [id number] 01/14/2020 Subjective Date/time seen: 01/14/20 11:50 Interval history: Follow-up for: Atrial fibrillation with rapid ventricular respo
[2020-01-14] MEDS: ALPRAZolam (*CRX) 0.25 MG TABLET PO (13:29)
--- NOTE | 2020-01-14 16:59 | PM.IMPN ---
Progress Note: A&P Assessment and Plan (1) Atrial fibrillation with rapid ventricular response: Code(s): I48.91 - Unspecified atrial fibrillation Status: Acute Assessment and Plan: Acute rapid atrial fibrillation it may be secondary to acute CHF exacerbation. Admit to IMU, telemetry, continue diltiazem IV drip for rate control overnight. Check TSH reflex T4, echocardiogram in a.m.. We will trend troponin to rule out concomitant acute coronary syndrome. The patient is already anticoagulated on Coumadin. Monitor PT INR. Continue Coumadin therapy. Continue digoxin therapy.Cardiology consultation in a.m.. 01/14/20 16:59 patient is 59-year-old female recently moved from [place] with history prosthetic mechanical mitral valve replacement on Coumadin for anticoagulation will monitor , patient has history of atrial fibrillation, COPD, CHF patient presented emergency department with shortness or breath and was found to have atrial fibrillation with RVR and started the patient on diltiazem drip and her heart rate is trending down to 90 patient is seen political reporter and been stable heart rate will switch her over to oral medication, today patient had cardiac echo showed ejection fraction of 50-55% and indeterminate diastolic dysfunction, patient also has a history of chronic respiratory failure on 3 L oxygen, and history of COPD unfortunately patient still smoke, this afternoon patient was somnolent patient was evaluated and her lungs sounded with wheezing rales and rhonchi with fair air entry. ABG was done which showed pH of 7.454, CO2 36.8 and oxygen saturation of 108.6 on 3 L, patient is given IV Lasix 40 mg, Solu-Medrol 125 minutes and DuoNeb will continue to monitor and follow up on chest x-ray, patient also had a complaint of sore throat it does appears erythematous will start the patient on doxycycline, today 01/13 patient is feeling much better not a short of breath denies any cough fever or chills, sees on diltiazem drip her rate is controlled seen by political reporter will switch her over overall diltiazem once IV diltiazem has cleared out from her systoms, will continue Solu-Medrol and taper as her symptoms improve, have a PT OT evaluate the pain, will benefit from physical therapy at home, patient to follow-up with supervisor shuttle fitting as outpatient. (2) Acute CHF: Qualifiers: Heart failure type: unspecified Qualified Code(s): I50.9 - Heart failure, unspecified Code(s): I50.9 - Heart failure, unspecified Status: Acute Assessment and Plan: sodium prudent fluid restricted diet. Monitor fluid status. Continue Lasix therapy. CHF teaching. (3) Elevated d-dimer: Code(s): R79.89 - Other specified abnormal findings of blood chemistry Status: Acute Assessment and Plan: We will obtain a CTA with PE protocol to rule out acute pulmonary embolism. (4) COPD (chronic obstructive pulmonary disease): Qualifiers: COPD type: unspecified COPD Qualified Code(s): J44.9 - Chronic obstructive pulmonary disease, unspecified Code(s): J44.9 - Chronic obstructive pulmonary disease, unspecified Status: Chronic Assessment and Plan: We will use Xopenex as bronchodilator as the patient has rapid atrial fibrillation. (5) Hypertension: Qualifiers: Hypertension type: unspecified Qualified Code(s): I10 - Essential (primary) hypertension Code(s): I10 - Essential (primary) hypertension Status: Chronic Assessment and Plan: Monitor blood pressure. Continue home antihypertensives. (6) Hypercholesteremia: Code(s): E78.00 - Pure hypercholesterolemia, unspecified Status: Chronic Assessment and Plan: Continue pravastatin. Subjective Date/time seen: 01/14/20 16:59 patient is 59-year-old female recently moved from [place] with history prosthetic mechanical mitral valve replacement on Coumadin for anticoagulation will mo
[2020-01-14] MEDS: dilTIAZem HCL 30 MG TABLET PO (17:28)
[2020-01-15] VITALS (11 sets, daily range): BP systolic 110–120; BP diastolic 63–91; PULSE 84–109; RESP 20–24; TEMP 35.9–36.6; O2SAT 100
[2020-01-15] MEDS: dilTIAZem HCL 30 MG TABLET PO ×2 (01:43→07:02)
[2020-01-15] MEDS: methylPREDNISolone SOD SUCC 125 MG VIAL 60 MG IV PUSH ×2 (01:43→07:00)
[2020-01-15 05:09] LABS: Hematocrit 31.3 % (37.0-47.0); Mean Corpuscular HGB Conc 31.9 g/dl (32-36); Mean Corpuscular Hemoglobin 29.4 pg (26-34); Mean Corpuscular Volume 92.1 fl (80-100); Mean Platelet Volume 9.7 fl (7.4-10.4); Platelet Count Result 435 k/mm3 (150-375); White Blood Count 16.6 K/mm3 (4.5-10.0)
[2020-01-15 05:22] LABS: Prothrombin Time 45.9 Seconds (11.1-14.7)
[2020-01-15 05:36] LABS: Anion Gap 8 mmol/L (8-16); Blood Urea Nitrogen 28 mg/dL (7-17); Carbon Dioxide 32 mmol/L (22-30); Chloride 100 mmol/L (98-107); Estimated CRCL calculation 65 ml/min; Estimated Glomerular Filt Rate > 60; Glucose 155 mg/dL (65-105); Magnesium 1.9 mg/dL (1.6-2.3); Potassium 3.7 mmol/L (3.4-5.0); Sodium 140 mmol/L (137-145)
[2020-01-15] MEDS: DIGOXIN 250 MCG TABLET PO (07:25)
[2020-01-15] MEDS: PRAVASTATIN SODIUM 20 MG TABLET PO (07:25)
[2020-01-15] MEDS: PRAMIPEXOLE 0.125 MG TABLET PO (07:25)
[2020-01-15] MEDS: FLUoxetine HCL 20 MG CAPSULE PO (07:25)
[2020-01-15] MEDS: GABAPENTIN 100 MG CAPSULE PO ×3 (07:25→17:13)
[2020-01-15] MEDS: POTASSIUM CHLORIDE 20 MEQ TABLET 40 MEQ PO (09:25)
[2020-01-15] MEDS: NEOMYCIN/POLYMYXIN/BACITRACIN OINTMENT 15 GM TUBE 1 APPLIC TOPICAL (11:57)
--- NOTE | 2020-01-15 15:17 | PM.PNCARD ---
Progress Note: A&P Assessment and Plan (1) Atrial fibrillation with rapid ventricular response: Code(s): I48.91 - Unspecified atrial fibrillation Status: Acute Assessment and Plan: Heart rate controlled on short-acting diltiazem periods transitioned to long-acting diltiazem at noon dose today. Heart rate 108 at this time even with agitation and anxiety. Adamant that she needs to go home. She also needs to establish care with a chiropractic teacher. (2) History of mitral valve replacement with mechanical valve: Code(s): Z95.2 - Presence of prosthetic heart valve Status: Acute Assessment and Plan: Anticoagulation with warfarin target INR 2.5-3.5. INR this morning 5.0. Discussed that it is not safe to send her home with an INR elevated at 5. She did not receive dose of warfarin yesterday. INR most likely elevated due to prednisone and antibiotics. No signs of bleeding at this time. Due to her mechanical valve would not hold her warfarin for another day. Would decrease her dose to 2 mg daily. INR will be followed in our office. Check stat INR. (3) Congestive heart failure: Qualifiers: Heart failure chronicity: unspecified Heart failure type: unspecified Qualified Code(s): I50.9 - Heart failure, unspecified Code(s): I50.9 - Heart failure, unspecified Status: Acute Assessment and Plan: -5 L since admission. Lungs are clear to auscultation. She denies any shortness of breath on her home dose oxygen at 3 L nasal cannula. She is able to lay flat in bed. (4) COPD (chronic obstructive pulmonary disease): Qualifiers: COPD type: unspecified COPD Qualified Code(s): J44.9 - Chronic obstructive pulmonary disease, unspecified Code(s): J44.9 - Chronic obstructive pulmonary disease, unspecified Status: Chronic Assessment and Plan: Supplemental oxygen Smoking cessation again advised. (5) Tobacco abuse: Code(s): Z72.0 - Tobacco use Status: Acute Assessment and Plan: Smoking cessation counseling was done Additional Plan Discussed the risks of signing out AMA. She is adamant that she needs to go home. If STAT INR is less than 5 would discharged on 2 mg daily, check INR tomorrow with results to go to Dr Beverly's office. Follow-up has been arranged in our office with Dr Beverly to discuss her aortic valve stenosis. She does not want to brandt into a right and left heart catheterization as well as BARB without discussing further in the office with Dr Beverly. She also wants to discuss all of this with her daughters. Plan discussed with Dr Chase [id number] 01/15/2020 Subjective Date/time seen: 01/15/20 15:17 Interval history: Follow-up for: Atrial fibrillation with rapid ventricular response, mechanical mitral valve, long-term use of anticoagulation with warfarin, CHF, anxiety, depression Date of service: 01/15/2020 Subjective: No chest discomfort or shortness of breath. Very tearful as she needs to go home. Understands that her PT/INR is elevated at 5 but promises that she have her blood work drawn as asked if she is allowed to go home. She wants to spend some time with her daughters. She states that she verbalizes an understanding regarding her aortic valve stenosis that something will need to be done with the valve in the near future. Review of Systems Constitutional: Constitutional: Denies chills, Denies fatigue and Denies frequent falls Eyes: Eyes: Denies blurry vision ENT: Reports Normal hearing present, Denies dizziness, Denies epistaxis and Denies nasal congestion Cardiovascular: Cardiovascular: Denies chest pain, Denies syncope, Reports pedal edema ( resolved) and Reports dyspnea ( resolved) Respiratory: Respiratory: Reports dyspnea ( resolved) and Denies wheezing Gastrointestinal: Gastrointestina
[2020-01-15 15:40] LABS: INR 4.8; Prothrombin Time 44.3 Seconds (11.1-14.7)
[2020-01-15] MEDS: WARFARIN (*PBKC) 2 MG TABLET PO (17:13)
--- NOTE | 2020-01-15 17:31 | PM.DS ---
DS: Admitting Diagnosis Admitting Diagnosis Admitting Diagnosis: A. fib with RVR, CHF, COPD, anxiety DS: Discharge Diagnosis Discharge Diagnosis (1) Atrial fibrillation with rapid ventricular response: Code(s): I48.91 - Unspecified atrial fibrillation Status: Acute Assessment and Plan: Acute rapid atrial fibrillation it may be secondary to acute CHF exacerbation. Admit to IMU, telemetry, continue diltiazem IV drip for rate control overnight. Check TSH reflex T4, echocardiogram in a.m.. We will trend troponin to rule out concomitant acute coronary syndrome. The patient is already anticoagulated on Coumadin. Monitor PT INR. Continue Coumadin therapy. Continue digoxin therapy.Cardiology consultation in a.m.. 01/14/20 16:59 patient is 59-year-old female recently moved from [place] with history prosthetic mechanical mitral valve replacement on Coumadin for anticoagulation will monitor , patient has history of atrial fibrillation, COPD, CHF patient presented emergency department with shortness or breath and was found to have atrial fibrillation with RVR and started the patient on diltiazem drip and her heart rate is trending down to 90 patient is seen log clerk and been stable heart rate will switch her over to oral medication, today patient had cardiac echo showed ejection fraction of 50-55% and indeterminate diastolic dysfunction, patient also has a history of chronic respiratory failure on 3 L oxygen, and history of COPD unfortunately patient still smoke, this afternoon patient was somnolent patient was evaluated and her lungs sounded with wheezing rales and rhonchi with fair air entry. ABG was done which showed pH of 7.454, CO2 36.8 and oxygen saturation of 108.6 on 3 L, patient is given IV Lasix 40 mg, Solu-Medrol 125 minutes and DuoNeb will continue to monitor and follow up on chest x-ray, patient also had a complaint of sore throat it does appears erythematous will start the patient on doxycycline, today 01/13 patient is feeling much better not a short of breath denies any cough fever or chills, sees on diltiazem drip her rate is controlled seen by log clerk will switch her over overall diltiazem once IV diltiazem has cleared out from her systoms, will continue Solu-Medrol and taper as her symptoms improve, have a PT OT evaluate the pain, will benefit from physical therapy at home, patient to follow-up with corporate ethics officer as outpatient. (2) Acute CHF: Qualifiers: Heart failure type: unspecified Qualified Code(s): I50.9 - Heart failure, unspecified Code(s): I50.9 - Heart failure, unspecified Status: Acute Assessment and Plan: sodium prudent fluid restricted diet. Monitor fluid status. Continue Lasix therapy. CHF teaching. (3) Elevated d-dimer: Code(s): R79.89 - Other specified abnormal findings of blood chemistry Status: Acute Assessment and Plan: We will obtain a CTA with PE protocol to rule out acute pulmonary embolism. (4) COPD (chronic obstructive pulmonary disease): Qualifiers: COPD type: unspecified COPD Qualified Code(s): J44.9 - Chronic obstructive pulmonary disease, unspecified Code(s): J44.9 - Chronic obstructive pulmonary disease, unspecified Status: Chronic Assessment and Plan: We will use Xopenex as bronchodilator as the patient has rapid atrial fibrillation. (5) Hypertension: Qualifiers: Hypertension type: unspecified Qualified Code(s): I10 - Essential (primary) hypertension Code(s): I10 - Essential (primary) hypertension Status: Chronic Assessment and Plan: Monitor blood pressure. Continue home antihypertensives. (6) Hypercholesteremia: Code(s): E78.00 - Pure hypercholesterolemia, unspecified Status: Chronic Assessment and Plan: Continue pravastatin. DS: Summary Hospital Course Reason for hospitalization: Chief complaint: A. fib with RVR
== END 2020-01-15 18:09 | disposition home or self-care (01) | DRG 201 ==
LOC: ANHED 19:51 → ANHIMU 22:28 → ANH2MED 01-19 08:49 → ANHIMU 01-19 08:49
PROVIDERS: Nurse Practitioner Adult Health; Admitting Provider Family Medicine; Emergency Provider Emergency Medicine; PCP Physician Assistant; Visit Provider Family Medicine
DX: I48.19 Other persistent atrial fibrillation (principal); I11.0 Hypertensive heart disease with heart failure; I50.31 Acute diastolic (congestive) heart failure; J44.9 Chronic obstructive pulmonary disease, unspecified; F41.8 Other specified anxiety disorders; F31.9 Bipolar disorder, unspecified; J96.10 Chronic respiratory failure, unspecified whether with hypoxia or hypercapnia; E78.00 Pure hypercholesterolemia, unspecified; Z99.81 Dependence on supplemental oxygen; Z95.2 Presence of prosthetic heart valve; Z87.891 Personal history of nicotine dependence; Z79.01 Long term (current) use of anticoagulants; Z95.5 Presence of coronary angioplasty implant and graft; E66.9 Obesity, unspecified; Z68.30 Body mass index [BMI] 30.0-30.9, adult
CPT/HCPCS: 36415; 36600; 71045; 71046; 71275; 80048; 82805; 83735; 83880; 84443; 84484; 85025; 85027; 85380; 85610; 93005; 94640; 96374; 96375; 99285; A9270; C8929; J1940; J2060; J2930; Q9957; Q9967

== ENCOUNTER 2020-01-16 09:12 | Outpatient (CLI) | payer OTHER, SELFPAY ==
[2020-01-16 09:40] LABS: Prothrombin Time 47.5 Seconds (11.1-14.7)
[2020-01-16 10:00] LABS: INR 5.2
== END 2020-01-16 09:13 | disposition home or self-care (01) ==
PROVIDERS: PCP Physician Assistant; Visit Provider Nurse Practitioner Adult Health
DX: I48.91 Unspecified atrial fibrillation (principal); Z95.2 Presence of prosthetic heart valve
CPT/HCPCS: 36415; 85610

== ENCOUNTER → 2020-01-21 11:23 | Emergency (ER) | payer OTHER, SELFPAY | END | disposition left against medical advice (07) | PROVIDERS: PCP Physician Assistant | DX: Z53.21 Procedure and treatment not carried out due to patient leaving prior to being seen by health care provider (principal) | CPT/HCPCS: 99199 ==

== ENCOUNTER 2020-03-23 08:38 | Outpatient (RCR) | payer OTHER, SELFPAY ==
[2020-01-19 08:16] LABS: Prothrombin Time 21.8 Seconds (11.1-14.7)
[2020-01-22 10:52] LABS: INR 1.2; Prothrombin Time 15.2 Seconds (11.1-14.7)
[2020-01-26 13:32] LABS: INR 1.4; Prothrombin Time 16.3 Seconds (11.1-14.7)
[2020-02-04 11:08] LABS: INR 2.7; Prothrombin Time 27.9 Seconds (11.1-14.7)
[2020-02-09 09:49] LABS: INR 2.3; Prothrombin Time 24.9 Seconds (11.1-14.7)
[2020-02-16 18:12] LABS: INR 1.2; Prothrombin Time 16.1 Seconds (11.1-14.7)
[2020-03-10 15:41] LABS: INR 2.3; Prothrombin Time 25.8 Seconds (11.1-14.7)
[2020-03-15 17:40] LABS: INR 1.8; Prothrombin Time 21.5 Seconds (11.1-14.7)
[2020-03-23 09:01] LABS: INR 2.2; Prothrombin Time 25.2 Seconds (11.1-14.7)
== END 2020-04-18 23:59 | disposition home or self-care (01) ==
LOC: ANHLAB 08:38
PROVIDERS: PCP Physician Assistant; Visit Provider Internal Medicine Cardiovascular Disease
DX: Z95.4 Presence of other heart-valve replacement (principal)
CPT/HCPCS: 36415; 85610

== ENCOUNTER 2020-06-06 10:42 | Inpatient (IN) | payer OTHER, SELFPAY ==
[2020-06-06] VITALS (25 sets, daily range): BP systolic 91–116; BP diastolic 44–91; PULSE 77–101; RESP 20–32; TEMP 36.1–36.8; O2SAT 91–100
--- NOTE | ~2020-06-06 | CT_ITS ---
EXAMINATION: CTA chest PE protocol DATE: 06/06/2020 13:23 INDICATION: Left pleural effusion and shortness of breath TECHNIQUE: Computed tomography angiography (CTA) of the chest was performed with 100 mL Omnipaque-350 intravenous contrast timed to evaluate the pulmonary arteries. Coronal maximum intensity projection 3D-reconstructions were created by the technologist. The dose-length product (DLP) was 312.97 mGy-cm. Automated exposure control and iterative reconstruction technique were employed. COMPARISON: 01/12/2020 FINDINGS: The pulmonary arteries are well-opacified. No pulmonary embolism is identified. Sensitivity for pulmonary embolism in the lower lobes is slightly limited by motion artifact. There is a moderat e-sized left pleural effusion which causes passive atelectasis in the left lung. A small right pleura l effusion is present. There is no pneumothorax. Cardiomegaly is noted. There are smooth interlobular septal thickening and groundglass opacities throughout the lungs. There are changes of mitral valve surgery and interval aortic valve surgery. There is persistent mediastinal and bilateral hilar lympha denopathy. There is mild thoracic spondylosis. IMPRESSION: 1. No pulmonary embolism identified. 2. Moderate-sized left pleural effusion causing passive atelectasis on the left. 3. Cardiomegaly with mild pulmonary edema. 4. Mediastinal lymphadenopathy with differential as previously described including reactive lymphaden opathy, lymphoma, or metastatic disease. Reviewed, dictated and finalized at location A. TING MACHINE OPERATOR IMPRESSION: 1. No pulmonary embolism identified. 2. Moderate-sized left pleural effusion causing passive atelectasis on the left . 3. Cardiomegaly with mild pulmonary edema. 4. Mediastinal lymphadenopathy with differential as previously described includ ing reactive lymphadenopathy, lymphoma, or metastatic disease.
--- NOTE | ~2020-06-06 | XR_ITS ---
EXAMINATION: XR chest 2V DATE: 06/12/2020 15:40 INDICATION: Pleural effusion. TECHNIQUE: Frontal and lateral views of the chest were obtained. COMPARISON: Chest 2 views 06/10/2020 FINDINGS: There are small pleural effusions, loculated on the left. There is mild peripheral atelecta sis in left lung. There is an interstitial pattern, consistent with mild pulmonary edema. No pneumoth orax. Cardiomegaly is noted. There are changes of aortic valve replacement. Retained epicardial pacer wires are noted. IMPRESSION: 1. Mild pulmonary edema. 2. Small pleural effusions, loculated on the left. 3. Cardiomegaly. Reviewed, dictated and finalized at location A. CHMAKER
--- NOTE | ~2020-06-06 | XR_ITS ---
EXAMINATION: [id number] DATE: 06/10/2020 14:05 INDICATION: Status post thoracentesis TECHNIQUE: frontal and lateral views of the chest were obtained. COMPARISON: Chest radiograph dated 06/08/2020 FINDINGS: Several decrease in size of a now small left pleural effusion which appears at least partially locula duran along portions of the major fissure and along the lateral mid to lower lung zone. Small amount of effusion is also seen at the left posterior sulcus. No pneumothorax. Increased interstitial pattern in the bilateral mid to lower lung zones. Cardiomegaly. Median sternotomy wires and mediastinal surgi betty clips are seen, likely from prior coronary artery bypass grafting. Are also changes of prior aort ic and mitral valve repairs. Retained epicardial pacemaker leads along the inferior margin of the hea rt. IMPRESSION: 1. Decreased now small and likely at least partially loculated left pleural effusion. 2. Increased interstitial pattern in the bilateral mid and lower lung zones which could represent pul monary edema, atelectasis, pneumonia or some combination thereof. 3. Cardiomegaly. Reviewed, dictated and finalized at location A. ARY MANAGER IMPRESSION: 1. Decreased now small and likely at least partially loculated left pleural eff usion. 2. Increased interstitial pattern in the bilateral mid and lower lung zones whi ch could represent pulmonary edema, atelectasis, pneumonia or some combination thereof. 3. Cardiomegaly.
--- NOTE | ~2020-06-06 | XR_ITS ---
XR chest 1V portable DATE: 06/08/2020 10:04 INDICATION: Shortness of breath TECHNIQUE: Portable upright AP chest on June 08, 2020 at 10:06 AM COMPARISON: June 06, 2020 CT pulmonary scan FINDINGS: Large left pleural effusion is again noted is left lung infiltrate and atelectasis, particu larly in the left lower lobe. There is patchy infiltrate in left mid and upper lung field as well. Cardiomegaly. Aortic arch calcification. There is pulmonary vascular congestion and redistribution. N o pneumothorax. Status post sternotomy and cardiac valve replacement. Diffuse osteopenia. IMPRESSION: Cardiomegaly, pulmonary vascular congestion, minimal right pleural effusion, suggesting c ongestive heart failure Large left pleural effusion, with compressive atelectasis/infiltrate involving particularly the left lower lobe. Patchy left mid and upper lung infiltrate is suggested as well Reviewed, dictated and finalized at location A. ER MELTER IMPRESSION: Cardiomegaly, pulmonary vascular congestion, minimal right pleural effusion, suggesting congestive heart failure Large left pleural effusion, with compressive atelectasis/infiltrate involving particularly the left lower lobe. Patchy left mid and upper lung infiltrate is suggested as well
--- NOTE | ~2020-06-06 | US_ITS ---
EXAMINATION: US thoracentesis DATE: 06/10/2020 14:05 INDICATION: Left pleural effusion TECHNIQUE: The procedure and its risks and benefits were discussed with the patient. Potential risks discussed included bleeding, infection, and pneumothorax. The patient understood the risks and agreed to proceed. The skin was prepped and draped in sterile fashion. 1% lidocaine was used for local anes thesia. Under ultrasound guidance, a 5 Fr catheter with trochar was advanced into the small to modera te-sized left pleural effusion. Fluid was aspirated. The catheter was removed, and a dressing was tad lied. There were no immediate complications. FINDINGS: Ultrasound images demonstrate a small to moderate pleural effusion and the catheter within the fluid. IMPRESSION: 1. Successful ultrasound-guided thoracentesis yielding 400 mL mL of bloody dark maroon-colored fluid . Reviewed, dictated and finalized at location A. NERY OPERATOR LIGHT ENDS RECOVERY IMPRESSION: 1. Successful ultrasound-guided thoracentesis yielding 400 mL mL of bloody mayte k maroon-colored fluid.
--- NOTE | ~2020-06-06 | CT_ITS ---
EXAMINATION: CT abdomen pelvis w con DATE: 06/11/2020 10:08 INDICATION: Lymphadenopathy TECHNIQUE: Computed tomography (CT) of the abdomen and pelvis was performed with 100 mL Omnipaque-350 intravenous contrast. Automated exposure control and iterative reconstruction technique were employe d. The dose-length product was 422.62 mGy-cm. COMPARISON: Chest CT dated 06/06/2020 FINDINGS: Groundglass opacity and smooth septal line thickening at the bilateral lung bases consistent with mil d pulmonary edema. Small pneumatocele in the right lower lobe. Small bilateral pleural effusions with compressive atelectasis at the periphery of the bilateral lower lobes and lingula. Cardiomegaly. Ath erosclerotic coronary artery calcification. No pericardial effusion. Median sternotomy wires and aort ic and mitral valve repairs. Epicardial pacemaker leads along the inferior aspect of the right heart. Suggestion of a couple subtle gallstones within the otherwise normal-appearing gallbladder with no wa ll thickening or pericholecystic inflammatory change to suggest acute cholecystitis. Liver, spleen, p ancreas and bilateral adrenal glands are normal. There are small regions of cortical scarring at the lower poles of both kidneys, likely sequela of prior infection or infarction. There are a few diverti cula along the descending and sigmoid colon without adjacent inflammatory change to suggest diverticu litis. The appendix is not visualized. No pericecal inflammatory change to suggest acute appendicitis . Small bowel is unremarkable with no obstruction. Lopez catheter in the decompressed bladder. Retro verted, retroflexed uterus and bilateral adnexa are unremarkable. No free intraperitoneal gas or flui d. 3.0 x 2.1 x 2.1 cm rim enhancing loculated fluid collection along the anterior margin of the left common femoral artery and vein with a few surrounding surgical clips most likely representing a hemat kathy related to prior vascular access. No internal contrast to suggest pseudoaneurysm. No pathological ly enlarged abdominal, pelvic or inguinal lymphadenopathy. Scattered degenerative skeletal changes. B one islands in the left femoral head. IMPRESSION: 1. Subcutaneous 3 x 2 x 2 cm likely hematoma related to vascular access at the left groin. 2. Likely congestive heart failure with cardiomegaly, mild pulmonary edema at the lung bases and smal l bilateral pleural effusions. 3. No pathologically enlarged abdominal or pelvic lymphadenopathy. Reviewed, dictated and finalized at location A. LLENCE COACH IMPRESSION: 1. Subcutaneous 3 x 2 x 2 cm likely hematoma related to vascular access at the left groin. 2. Likely congestive heart failure with cardiomegaly, mild pulmonary edema at t he lung bases and small bilateral pleural effusions. 3. No pathologically enlarged abdominal or pelvic lymphadenopathy.
--- NOTE | ~2020-06-06 | XR_ITS ---
EXAMINATION: XR chest 1V portable INDICATION: Shortness of breath TECHNIQUE: Portable AP chest at 1123 hours COMPARISON: 01/13/2020 FINDINGS: A moderate-sized left pleural effusion. There are airspace opacities of the left mid and lo wer lung zones. Cardiomegaly is noted. A mild diffuse interstitial pattern is present. There is no pn eumothorax. Changes of cardiac valve surgery are noted. IMPRESSION: 1. Cardiomegaly with mild pulmonary edema. 2. Moderate-sized left pleural effusion. 3. Airspace opacities of the left mid and lower lung zones, consistent with atelectasis versus pneumo juancho. Reviewed, dictated and finalized at location A. MARKETING IMPRESSION: 1. Cardiomegaly with mild pulmonary edema. 2. Moderate-sized left pleural effusion. 3. Airspace opacities of the left mid and lower lung zones, consistent with ate lectasis versus pneumonia.
--- NOTE | 2020-06-06 10:56 | ED.SOB ---
HPI - SOB/Dyspnea General Chief Complaint: Shortness of Breath/Dyspnea Stated Complaint: SOB Time Seen by Provider: 06/06/20 10:54 Source: patient Mode of arrival: EMS Limitations: clinical condition History of Present Illness HPI Narrative: A 60-year-old female comes into the emergency department with complaints of shortness of breath. Due to the patient shortness of breath she is unable to provide much meaningful history. She does indicate that she has a history of COPD and has been using multiple albuterol treatments throughout the day. Related Data Home Medications Medication Instructions Recorded Confirmed fluoxetine 60 mg PO DAILY 01/06/20 05/26/20 furosemide 40 mg PO BID 01/06/20 05/26/20 gabapentin 100 mg PO TID 01/06/20 05/26/20 pramipexole 0.125 mg PO DAILY 01/06/20 05/26/20 aspirin 81 mg PO DAILY 05/26/20 05/26/20 clonazepam 0.5 mg PO BID 05/26/20 05/26/20 rosuvastatin 20 mg PO DAILY 05/26/20 05/26/20 warfarin 6 mg PO DAILY 05/26/20 05/26/20 Allergies Allergy/AdvReac Type Severity Reaction Status Date / Time Penicillins Allergy Swelling Verified 01/12/20 17:38 of Lip/Tongue/Throat tramadol Allergy Swelling Verified 01/12/20 17:38 of Lip/Tongue/Throat Review of Systems Review of Systems: ROS unobtainable: Yes unobtainable due to medical condition PMFSH Past Medical History Medical History (Updated 06/06/20 @ 14:23 by Flako Barton DO) Asthma Bipolar disorder Bronchitis COPD (chronic obstructive pulmonary disease) History of manic depressive disorder Hypercholesteremia Hypertension MVP (mitral valve prolapse) Surgical History Surgical History History of coronary artery stent placement History of heart surgery valve replaced Family History Family History Father , cancer Lymph node cancer Mother , cancer-unknown Cancer Sibling , Cancer Lymph node cancer Social History Social History Smoking packs per day: 0.5 Smoking cigarettes per day: 10.0 Years smoked: 40 Smoking pack-years: 20.00 Smoking status: Current every day smoker Tobacco type: cigarettes Second hand tobacco smoke exposure: Yes Alcohol intake: never Substance use: never Additional occupation/education comments: disable Gender identity (if verbalized by the patient): Female Spiritual care concerns: No Exam Narrative: Exam Narrative: GENERAL: Well-appearing, well-nourished appears to be in respiratory distress. HEAD: Normocephalic, atraumatic. EYES: PERRLA and EOMI. ENT: Nares clear, no rhinorrhea or epistaxis. Mucous membranes moist. NECK: Supple. No adenopathy or masses. No carotid bruits or JVD CHEST: Tachypneic, decreased air movement, expiratory wheezing heard throughout HEART: Tachycardic. No murmur heard. Normal peripheral pulses. ABDOMEN: Soft, nontender, nondistended, normal active bowel sounds. EXTREMITIES: Normal range of motion. No edema. SKIN: Warm, dry, no rash. NEURO: No focal deficits. Alert and oriented x3. PSYCH: Normal mood and affect. Course Reevaluation(s) Reevaluation #1: Reevaluated patient after breathing treatments. She indicates that she is breathing somewhat easier. Patient appears much easier. Discussed her recent aortic procedure more in detail. She states that she had a revision of her aortic valve and a procedure done on her aorta that she is not sure exactly what it was. Time: 13:12 Consultations Consultation #1: Case discussed with ERICKA Potts for hospitalist services. After discussing full details of the patient's presentation, evaluation and work-up she agrees to accept the patient for further admission and consultation. Time: 14:00 Consultation #2: Spoke with Dr. Langford, radiologist. Clarified the effusion to see if it was loculated or
--- NOTE | 2020-06-06 11:00 | ECG_ITS ---
Measurements Intervals [place] Rate: 107 P: DC: 0 QRS: 43 QRSD: 94 T: 70 QT: 369 QTc: 493 Interpretive Statements ATRIAL FIBRILLATION WITH RAPID VENTRICULAR RESPONSE NONSPECIFIC ST & T-WAVE ABNORMALITY- DIFFUSE LEADS BASELINE ARTIFACT- I, II, III, AVL, AVF, V1, V3-V6 ABNORMAL ECG Electronically Signed On 06-06-2020 15:22:22 PLASTIC STRAIGHTENING ROLL OPERATOR by Ramón Morales D.O.
[2020-06-06] MEDS: ALBUTEROL SULFATE NEB 2.5 MG/0.5 ML INH 10 MG INHALATION (11:10)
[2020-06-06] MEDS: IPRATROPIUM BR 0.02% INH SOLN 0.5 MG/2.5 ML VIAL 1 MG INHALATION (11:10)
[2020-06-06 11:12] LABS: Basophils Absolute Auto 0.1 K/mm3 (0.0-0.1); Basophils Percent Auto 0.7 % (0.2-1.2); Eosinophils Absolute Auto 0.5 K/mm3 (0-0.3); Eosinophils Percent Auto 3.2 % (0-4.4); Hematocrit 31.3 % (37.0-47.0); Hemoglobin 9.8 g/dL (12.0-15.0); Immature Granulocyte Absolute 0.07 K/mm3 (0.00-0.031); Immature Granulocyte Percent A 0.5 % (0-0.5); Lymphocytes Percent Auto 9.4 % (18.3-44.2); Mean Corpuscular HGB Conc 31.3 g/dl (32-36); Mean Corpuscular Hemoglobin 28.3 pg (26-34); Mean Corpuscular Volume 90.5 fl (80-100); Mean Platelet Volume 10.2 fl (7.4-10.4); Monocytes Absolute Auto 1.4 K/mm3 (0.1-0.6); Monocytes Percent Auto 9.2 % (2.6-8.5); Neutrophils Absolute Auto 11.4 K/mm3 (1.3-6.7); Platelet Count Result 436 k/mm3 (150-375); Red Blood Count 3.46 M/mm3 (4.2-5.4); Red Cell Distribution Width 15.7 % (11.5-14.5); White Blood Count 14.8 K/mm3 (4.5-10.0)
[2020-06-06 11:16] LABS: Alveolar/Arterial O2 Gradient 50.3 mmHg; Base Excess ABG 2.5 mEq/l (+/-2.0); Fractional Inspired Oxygen 28 %; HCO3 ABG 26.5 mEq/l (22.0-26.0); Oxygen Content ABG 16.6 %vol (16.0-22.0); Oxyhemoglobin 96.6 % THb (90.0-100.0); PCO2 ABG 38.6 mmHg (35.0-45.0); PO2 ABG 103.8 mmHg (80.0-100.0); PO2 FiO2 Ratio Arterial Blood 3.71 %; Total Hemoglobin 12.1 g/dL (12.0-18.0); pH ABG 7.454 (7.350-7.450)
[2020-06-06 11:17] LABS: Device NASAL CANNULA; Modified Allen's Test Pass; Site Drawn LEFT RADIAL
[2020-06-06] MEDS: methylPREDNISolone SOD SUCC 125 MG VIAL IV PUSH (11:21)
[2020-06-06 11:25] LABS: Alanine Aminotransferase 14 U/L (4-35); Albumin Level 3.8 g/dL (3.5-5.1); Alkaline Phosphatase 82 U/L (38-126); Anion Gap 4 mmol/L (8-16); Aspartate Amino Transferase 28 U/L (14-36); Bilirubin,Total 0.7 mg/dL (0.2-1.3); Blood Urea Nitrogen 24 mg/dL (7-17); Calcium 8.6 mg/dL (8.4-10.2); Carbon Dioxide 31 mmol/L (22-30); Chloride 101 mmol/L (98-107); Estimated CRCL calculation 40 ml/min; Estimated Glomerular Filt Rate 46; Glucose 118 mg/dL (65-105); Potassium 3.2 mmol/L (3.4-5.0); Sodium 136 mmol/L (137-145)
--- NOTE | 2020-06-06 14:30 | PM.IMHP ---
H&P: HPI History of Present Illness Date/Time: 06/06/20 14:30. The patient was seen and evaluated in the emergency department. <Dotty Linares PA-C - Last Filed: 06/06/20 19:00> Chief Complaint: Shortness of breath. <Dotty Linares PA-C - Last Filed: 06/06/20 19:00> Narrative: This is a 60-year-old female smoker with multiple medical problems including valvular heart disease status post mechanical mitral valve replacement with recent aortic valve replacement in March 2020 on long-term anticoagulation, persistent atrial fibrillation, hypertension, COPD, and several other comorbidities who presented to the emergency department earlier today from home for evaluation of shortness of breath. She reports progressive dyspnea on lesser and lesser exertion the past 4 days and unfortunately her inhalers have not been providing her with longstanding benefit. Additionally she reports left-sided pleuritic chest pain for about the same amount of time. CTA of the chest done in the emergency department was negative for pulmonary embolism however did demonstrate a moderately sized left pleural effusion and mild pulmonary edema as well as mediastinal lymphadenopathy noted on previous imaging with a differential to include reactive lymphadenopathy, lymphoma, or metastatic disease. She states compliance with her home medication, including furosemide and warfarin, and on exam she has no significant edema but was noted to have large scattered bruises throughout her body with an INR was 12.9. After receiving a nebulizer in the emergency department she feels somewhat better however is still short of breath. Initially she was going to be sent for thoracentesis however given the significantly elevated INR, we are going to have to reverse that and her thoracentesis will be in the morning. She denies fever, chills, sweats, cold and flu symptoms, midsternal chest pain, palpitations, cough, nausea, and vomiting. <Dotty Linares PA-C - Last Filed: 06/06/20 19:00> Review of Systems Review of Systems: Narrative: Twelve systems were reviewed with pertinent positives and negatives as per HPI. She tells me she quit smoking 6 days ago. It looks like she was on home oxygen at 1 point time 3 liters nasal cannula, but did come to the ER today without oxygen on with an SpO2 in the high 80s. No vertigo, syncope, or near syncope. She denies cold and flu symptoms. No known history of malignancy. No obvious lymphadenopathy. Except as documented, all other systems were reviewed and are negative. <Dotty Linares PA-C - Last Filed: 06/06/20 19:00> [facility] Past Medical History Medical History: Medical History (Updated 06/06/20 @ 19:53 by Debi Sorto MD) Acute on chronic diastolic CHF (congestive heart failure) Anxiety Asthma Bipolar disorder Bronchitis Chronic anemia With history of blood transfusion Chronic obstructive pulmonary disease Congestive heart failure Echocardiogram in December 2019 showed a new ejection fraction on the low end of normal, approximately 50 to 55%. Severe pulmonary hypertension also noted. Current use of chcf anticoagulation Hypercholesteremia Hypertension Persistent atrial fibrillation Severe pulmonary hypertension Noted on echocardiogram in December 2019 with an estimated peak RVSP of 66 millimeters of mercury. Tobacco abuse Valvular heart disease Mitral valve prolapse status post mechanical mitral valve replacement in the 1991. Aortic stenosis status post aortic valve replacement in March 2020. <Dotty Linares PA-C - Last Filed: 06/06/20 19:00> Surgical History Surgical History: Surgical History H/O mechanical aortic valve replacement 03/2020, 19 mm [facility] mechanical mitral valve replacement with replacement of the ascending aorta and lina arch History of aortic valve replacement (~03/2020) [facility]
[2020-06-06 14:39] LABS: Prothrombin Time 95.4 Seconds (11.1-14.7)
[2020-06-06 14:43] LABS: INR 12.9
[2020-06-06] MEDS: PHYTONADIONE 5 MG TABLET PO (15:20)
--- NOTE | 2020-06-06 16:37 | PC.NURSE ---
This patient, Angeles Fraire, was admitted to [facility] Surg Room 307-01. Patient/family oriented to hospital policies and general routines including ID bracelet, bed and alarms, visiting hours, pain management, procedures, bathroom and other care routines, personal items, smoking policy, room service/diet, and visiting hours. Information on how to activate the Rapid Response Team has been discussed. Patient/Family are encouraged to report perceived risks to care and to ask questions if they do not understand what they are told or what they should do.
[2020-06-06] MEDS: ACETAMINOPHEN 325 MG TABLET 650 MG PO (17:28)
[2020-06-06] MEDS: SODIUM CHLORIDE 0.9% IV 250 ML 30 ML IV CONT (17:30)
[2020-06-06 17:40] LABS: Hematocrit 28.8 % (37.0-47.0); Hemoglobin 9.2 g/dL (12.0-15.0)
[2020-06-06 18:53] LABS: Albumin Level 3.8 g/dL (3.5-5.1); Amylase 42 U/L (30-110); Anion Gap 11 mmol/L (8-16); Blood Urea Nitrogen 26 mg/dL (7-17); CRP 6.4 mg/dL (<1.0); Calcium 9.2 mg/dL (8.4-10.2); Carbon Dioxide 26 mmol/L (22-30); Chloride 100 mmol/L (98-107); Estimated CRCL calculation 48 ml/min; Estimated Glomerular Filt Rate 56; Glucose 222 mg/dL (65-105); Lactate Dehydrogenase 1200 U/L (313-618); Magnesium 1.6 mg/dL (1.6-2.3); Potassium 2.8 mmol/L (3.4-5.0); Sodium 137 mmol/L (137-145)
--- NOTE | 2020-06-06 19:37 | PM.CNCAR ---
Assessment and Plan Assessment and plan (1) Acute on chronic diastolic CHF (congestive heart failure): Code(s): I50.33 - Acute on chronic diastolic (congestive) heart failure Status: Acute Assessment and Plan: Patient is admitted with shortness of breath and appears to have CHF on chest x-ray. No BNP done. Noted edema at home but not seen on exam. She does have a left pleural effusion; secondary to CHF or perhaps a hemothorax though there is no history of trauma. Check BNP in the morning Start furosemide 40 mg IV push b.i.d. Blood pressure is running a little soft so will see how well she tolerates this. (If not well, consider holding diltiazem in using amiodarone short-term for heart rate control.) Echocardiogram to evaluate LV function and valves Might get a thoracentesis tomorrow. (2) Hypokalemia: Code(s): E87.6 - Hypokalemia Status: Acute Assessment and Plan: Will aggressively replete with p.o. potassium to try to avoid more IV fluids. Check potassium and magnesium in the morning. (3) Anemia: Code(s): D64.9 - Anemia, unspecified Status: Acute Assessment and Plan: Mild anemia noted. With elevated LDH we should consider valvular hemolysis. Repeating LDH and checking haptoglobin. Reviewed elevated LDL with ERICKA Helms. (should we consider a COVID screen?) No obvious GI bleeding. Check H&H in the morning (4) Over-anticoagulated: Status: Acute Assessment and Plan: INR 12.9 Patient has a history of noncompliance with Coumadin follow-up. Says she was not able to get a home INR monitor from her insurance company, [employer], so she finds it difficult to go to the lab. Getting some fresh frozen plasma and vitamin K tonight. If her INR goes less than 2.5, we should start heparin. Daily INRs. (5) Acute exacerbation of chronic obstructive airways disease: Code(s): J44.1 - Chronic obstructive pulmonary disease with (acute) exacerbation Status: Acute Assessment and Plan: Admitted actually with a diagnosis of COPD exacerbation. Got some steroids in the ER. No wheezing. (6) H/O mechanical aortic valve replacement: Code(s): Z95.2 - Presence of prosthetic heart valve Status: Acute Assessment and Plan: Mechanical aortic valve replacement 03/2021. Follow-up echo showed good valve function (7) History of mitral valve replacement with mechanical valve: Code(s): Z95.2 - Presence of prosthetic heart valve Status: Acute Assessment and Plan: History of remote mitral valve replacement. Keep INR 2.5-3.5. (8) Atrial fibrillation with rapid ventricular response: Code(s): I48.91 - Unspecified atrial fibrillation Status: Acute Assessment and Plan: History of permanent atrial fibrillation. Rate was a little high initially but now is reasonable, on diltiazem. History of Present Illness History of Present Illness Consult date/time: 06/06/20 19:37 Consult reason: congestive heart failure Reason For Visit: COPD exacerbation/pleural effusion Narrative: 04/05/2021 Angeles Fraire is a 60-year-old female with history of mechanical mitral and aortic valve replacements, persistent AFib and COPD whom I was asked to see at the request of hospitalist for my advice and opinion regarding her anticoagulation and heart failure, in consultation. The patient states she was in her normal state of health until 4 days ago when she started having shortness of breath with activity, swelling, and a dry cough. Denies any PND orthopnea. She states she has been compliant with her medications.
[2020-06-06 20:31] LABS: Phosphorus 2.9 mg/dL (2.5-4.5); Uric Acid 7.3 mg/dL (2.5-7.5)
[2020-06-06 21:17] LABS: Iron 35 ug/dL (37-170)
[2020-06-06] MEDS: IPRATROPIUM BR 0.02% INH SOLN 0.5 MG/2.5 ML VIAL INHALATION (21:19)
[2020-06-06 21:26] LABS: Percent Iron Saturation 11 % (20-50)
[2020-06-06 21:37] LABS: Folic Acid 13.2 ng/mL (2.76->20)
[2020-06-06] MEDS: FUROSEMIDE INJ 40 MG/4 ML VIAL IV PUSH (21:38)
[2020-06-06] MEDS: clonazePAM (*CRX) 0.5 MG TABLET PO (21:39)
[2020-06-06] MEDS: POTASSIUM CHLORIDE 20 MEQ TABLET 40 MEQ PO ×2 (21:39→23:40)
[2020-06-06] MEDS: GABAPENTIN 100 MG CAPSULE PO (21:40)
[2020-06-06 22:56] LABS: Add Urine Microscopic? YES; Appearance Urine Clear (Clear); Bilirubin Urine Negative (Negative); Blood Urine 3+ (Negative); Color Urine Straw (Yellow); Glucose Urine UA Negative (Negative); Ketones Urine Negative (Negative); Leukocyte Esterase Ur Negative LEU/UL (Negative); Mucus Urine Rare /lpf; Nitrate Urine Negative (Negative); Protein Urine 1+ mg/dL (Negative); RBC Urine >75 /hpf (0-2); Specific Grav Ur 1.023 (1.001-1.035); Urobilinogen Urine Negative mg/dL (<2.0)
[2020-06-07] VITALS (18 sets, daily range): BP systolic 101–108; BP diastolic 58–66; PULSE 51–101; RESP 16–24; TEMP 36.1–36.6; O2SAT 92–99
[2020-06-07 01:52] LABS: Potassium 3.4 mmol/L (3.4-5.0)
[2020-06-07 01:55] LABS: INR 2.7; Prothrombin Time 29.5 Seconds (11.1-14.7)
[2020-06-07 01:56] LABS: Partial Thromboplastin Time 58.2 SECONDS (22.3-36.8)
[2020-06-07 02:00] LABS: Hematocrit 26.5 % (37.0-47.0); Hemoglobin 8.2 g/dL (12.0-15.0)
[2020-06-07] MEDS: IPRATROPIUM BR 0.02% INH SOLN 0.5 MG/2.5 ML VIAL INHALATION ×4 (02:32→20:10)
[2020-06-07] MEDS: GABAPENTIN 100 MG CAPSULE PO ×3 (06:02→20:50)
[2020-06-07 06:14] LABS: Basophils Percent Auto 0.1 % (0.2-1.2); Hematocrit 25.6 % (37.0-47.0); Hemoglobin 8.1 g/dL (12.0-15.0); Immature Granulocyte Absolute 0.06 K/mm3 (0.00-0.031); Immature Granulocyte Percent A 0.5 % (0-0.5); Lymphocytes Absolute Auto 0.72 K/mm3 (0.9-3.2); Lymphocytes Percent Auto 6.5 % (18.3-44.2); Mean Corpuscular HGB Conc 31.6 g/dl (32-36); Mean Corpuscular Hemoglobin 28.3 pg (26-34); Mean Corpuscular Volume 89.5 fl (80-100); Mean Platelet Volume 9.9 fl (7.4-10.4); Monocytes Absolute Auto 0.6 K/mm3 (0.1-0.6); Neutrophils Absolute Auto 9.8 K/mm3 (1.3-6.7); Neutrophils Percent Auto 87.9 % (45.5-73.1); Platelet Count Result 348 k/mm3 (150-375); Red Blood Count 2.86 M/mm3 (4.2-5.4); Red Cell Distribution Width 15.6 % (11.5-14.5); White Blood Count 11.2 K/mm3 (4.5-10.0)
[2020-06-07 06:24] LABS: Prothrombin Time 31.7 Seconds (11.1-14.7)
[2020-06-07 06:33] LABS: Alanine Aminotransferase 16 U/L (4-35); Alkaline Phosphatase 86 U/L (38-126); Anion Gap 5 mmol/L (8-16); Aspartate Amino Transferase 22 U/L (14-36); Bilirubin,Total 0.5 mg/dL (0.2-1.3); Blood Urea Nitrogen 28 mg/dL (7-17); Calcium 9.3 mg/dL (8.4-10.2); Carbon Dioxide 30 mmol/L (22-30); Chloride 103 mmol/L (98-107); Estimated CRCL calculation 46 ml/min; Estimated Glomerular Filt Rate 50; Glucose 137 mg/dL (65-105); Magnesium 1.7 mg/dL (1.6-2.3); Sodium 138 mmol/L (137-145)
[2020-06-07 06:40] LABS: NT Pro B Type Natriuretic Pept 1380 PG/ML (5-100)
[2020-06-07 07:10] LABS: Hemoglobin A1C 5.2 % (<5.7)
[2020-06-07 07:43] LABS: Thyroid Stimulating Hormone Reflex 0.748 uIU/mL (0.465-4.68)
[2020-06-07] MEDS: ROSUVASTATIN 10 MG TABLET 20 MG PO (11:16)
[2020-06-07] MEDS: PRAMIPEXOLE 0.125 MG TABLET PO (11:16)
[2020-06-07] MEDS: FLUoxetine HCL 20 MG CAPSULE 60 MG PO (11:17)
[2020-06-07] MEDS: clonazePAM (*CRX) 0.5 MG TABLET PO ×2 (11:17→20:50)
[2020-06-07] MEDS: FUROSEMIDE INJ 40 MG/4 ML VIAL IV PUSH ×2 (11:17→16:41)
--- NOTE | 2020-06-07 11:21 | ECG_ITS ---
Measurements Intervals [place] Rate: 97 P: CA: 0 QRS: 36 QRSD: 85 T: 34 QT: 365 QTc: 465 Interpretive Statements ATRIAL FIBRILLATION NONSPECIFIC ST & T-WAVE ABNORMALITY- INF/HIGH LAT LEADS ABNORMAL ECG Electronically Signed On 06-07-2020 11:52:14 [employer]IVE [employer]AV[employer]CH[employer]IC by Ramón Morales D.O.
[2020-06-07 13:54] LABS: Troponin I < 0.012 ng/mL (0.000-0.034)
--- NOTE | 2020-06-07 13:59 | PM.IMPN ---
Progress Note: A&P Assessment and Plan (1) Respiratory failure with hypoxia: Code(s): J96.91 - Respiratory failure, unspecified with hypoxia Status: Acute Assessment and Plan: 06/07/20 13:59 patient is 60-year-old female presented with complaint of shortness of breath seen by record tester suspect patient may have exacerbation of CHF resulting in pleural effusion and will need thoracentesis patient is being diuresed with IV Lasix 40 mg b.i.d., patient with mechanical aortic valve for which patient is on Coumadin however upon arrival her INR was 12.5, Coumadin is on hold, patient was given FFP and vitamin K this morning patient's INR is 3, patient cannot have a thoracentesis currently, once patient INR is close to 2.5 will start the patient on heparin and plan for thoracentesis. Repeat cardiac echo is pending patient will be seen by Cardiology and further recommendation to follow. (2) Pleural effusion on left: Code(s): J90 - Pleural effusion, not elsewhere classified Status: Acute Assessment and Plan: On patient's INR is less than 2.5 will switch over to heparin drip and patient may have thoracentesis (3) Supratherapeutic INR: Code(s): R79.1 - Abnormal coagulation profile Status: Acute Assessment and Plan: Patient is noncompliant with INR follow-up, currently Coumadin on hold, patient was given FFP and vitamin K will monitor INR (4) Persistent atrial fibrillation: Code(s): I48.19 - Other persistent atrial fibrillation Status: Acute Assessment and Plan: Rate is controlled (5) Current use of intermediate anticoagulation: Code(s): Z79.01 - meterman (current) use of anticoagulants Status: Inactive Assessment and Plan: Plan is above (6) Valvular heart disease: Code(s): I38 - Endocarditis, valve unspecified Status: Inactive Assessment and Plan: On Coumadin INR is supratherapeutic (7) Chronic obstructive pulmonary disease: Code(s): J44.9 - Chronic obstructive pulmonary disease, unspecified Status: Inactive Assessment and Plan: Currently stable (8) Chronic anemia: Code(s): D64.9 - Anemia, unspecified Status: Inactive Assessment and Plan: Will monitor (9) Bipolar disorder: Code(s): F31.9 - Bipolar disorder, unspecified Status: Acute Assessment and Plan: Resume home medication and monitor (10) Anxiety: Code(s): F41.9 - Anxiety disorder, unspecified Status: Acute Assessment and Plan: Resume home medication and monitor (11) Mediastinal lymphadenopathy: Code(s): R59.0 - Localized enlarged lymph nodes Status: Acute Assessment and Plan: Most likely reactive however once clinically stable further evaluation will be done Additional Plan Patient presents today with shortness of breath within SpO2 in the high 80s on room air. It is noted that she was at one time on home oxygen. Hypoxia is likely due to a combination of moderately sized left pleural effusion in addition to pulmonary edema and underlying COPD. Continue schedule nebulizers q.6 hours as this did provide the patient with some relief in her wheezing. She was given a dose of IV steroids in the emergency department but I am going to hold off on any further systemic steroids at this time and will re-evaluate after her thoracentesis. Due to her supratherapeutic INR, the thoracentesis cannot be done today and she will receive FFP overnight. I did discuss with the patient that if her breathing starts to get worse, that we can try BiPAP overnight until she can have that pleural effusion drained. A heparin drip will need to be started as soon as possible after her thoracentesis given presence of mechanical valve. Continue p.o. furosemide with close monitoring of volume status, at this time she is reasonably compensated. I am wondering if her pleural effusion may be hemorrhagic due to th
--- NOTE | 2020-06-07 14:32 | PM.PNCARD ---
Progress Note: A&P Assessment and Plan (1) Acute on chronic diastolic CHF (congestive heart failure): Code(s): I50.33 - Acute on chronic diastolic (congestive) heart failure Status: Acute Assessment and Plan: Patient is admitted with shortness of breath and appears to have CHF on chest x-ray. BNP 1380 Continue furosemide 40 mg IV push b.i.d. monitor renal function and electrolytes. Blood pressure is running a little soft but so far tolerating current regimen. Echocardiogram today personally reviewed EF 55-60% prosthetic valves not well visualized although no significant regurgitation or stenosis of the aortic or mitral prosthesis. Apparently, patient is scheduled for thoracentesis tomorrow once INR is 1.5 her last. Was going to resume warfarin this evening as she must be on a stable dose with therapeutic INR at discharge. However, given this I am unable to initiate tonight. Will assess changing Lasix to oral regimen in a.m.. (2) Hypokalemia: Code(s): E87.6 - Hypokalemia Status: Acute Assessment and Plan: Continue to monitor closely. Resolved, potassium 4.0 this morning. (3) Anemia: Code(s): D64.9 - Anemia, unspecified Status: Acute Assessment and Plan: Mild anemia no signs of active bleeding. With elevated LDH we should consider valvular hemolysis. Haptoglobin pending. Follow H&H. (4) Over-anticoagulated: Status: Acute Assessment and Plan: INR 12.9 initially, 3.0 today. She remains off warfarin. Patient has a history of noncompliance with Coumadin follow-up. If her INR goes less than 2.5, we should start heparin. Daily INRs. (5) Acute exacerbation of chronic obstructive airways disease: Code(s): J44.1 - Chronic obstructive pulmonary disease with (acute) exacerbation Status: Acute Assessment and Plan: Admitted actually with a diagnosis of COPD exacerbation. Got some steroids in the ER. No wheezing. Management per primary service. (6) H/O mechanical aortic valve replacement: Code(s): Z95.2 - Presence of prosthetic heart valve Status: Acute Assessment and Plan: Mechanical aortic valve replacement 03/2021. Follow-up echo showed good valve function (7) History of mitral valve replacement with mechanical valve: Code(s): Z95.2 - Presence of prosthetic heart valve Status: Acute Assessment and Plan: History of remote mitral valve replacement. Keep INR 2.5-3.5. If INR drops below 2.5 initiate heparin drip. (8) Atrial fibrillation with rapid ventricular response: Code(s): I48.91 - Unspecified atrial fibrillation Status: Acute Assessment and Plan: History of permanent atrial fibrillation. Rate was a little high initially but now is reasonable, on diltiazem. Continue to monitor. Subjective Date/time seen: Date of service: 06/07/20 14:32 Follow-up for shortness of breath, CHF, atrial fibrillation, history of mitral and aortic valve prosthesis Patient complained of sharp chest pain sort to minimal touch which has improved today. She has a history of normal coronary anatomy left heart catheterization January 2020. Patient was to be discharged home states she has thing she needs to take care of. They are planning left thoracentesis tomorrow, INR 3.0 today. Patient states she can lie around at home like she is here. She denies shortness of breath but was dyspneic with conversation, remains on O2 supplementation albeit 1 L. when asked how her INR became so elevated at presentation she denies any changes in medications, diet, weight, noncompliance and otherwise states she had no idea. S
--- NOTE | 2020-06-07 19:52 | ECHO_ITS ---
Patient Info Name: Angeles Fraire Age: 60 years : 1960 Gender: Female Ht: 61 in Wt: 159 lbs BSA: 1.79 m2 HR: 98 bpm BP: 104 / 61 mmHg Heart Rhythm: Atrial Fibrillation Technical Quality: Fair Exam Date: 06/07/2020 9:21 AM Exam Location: [facility] Pulmonary Exam Room: 307 Patient Status: Inpatient Admit Date: 06/06/2020 Staff Ordering Physician: Debi Sorto MD Artist Model: Ailin Batres RDCS Attending Provider: Lori Mclaughlin MD Referring Physician: Macario WAGNER; Exam Type: CA echo doppler color flow Study Info Indications - new afib hx/o AVR MVR PULM HTN CHF COPD HTN SOB Complete two-dimensional, color flow and Doppler transthoracic echocardiogram is performed. Summary 1. Complete two-dimensional, color flow and Doppler transthoracic echocardiogram is performed. 2. Prosthetic mitral valve leaflets are not well visualized. 3. There is trace regurgitation of the not well visualized prosthetic mitral valve although limited due to reverberation artifact. 4. Left ventricular systolic function is normal, estimated at 55-60%. 5. There is no increased left ventricular wall thickness. 6. The left ventricular diastolic function is indeterminate. 7. Left atrial chamber dimension is moderately enlarged. 8. There is no prosthetic aortic valve stenosis with a peak velocity of 282 cm/s, mean gradient of 14 mmHg, and aortic valve area of 1.7 cm2. 9. There is no stenosis of the prosthetic mitral valve. 10. There is moderate tricuspid valve regurgitation. 11. No pulmonary hypertension, estimated pulmonary arterial systolic pressure is 28 mmHg. Left Ventricle Left ventricular chamber dimension is normal. Left ventricular systolic function is normal, estimated at 55-60%. There is no increased left ventricular wall thickness. The left ventricular diastolic function is indeterminate. Right Ventricle Right ventricular chamber dimension is normal. Right ventricular systolic function is normal. Left Atria Left atrial chamber dimension is moderately enlarged. Right Atria Right atrial chamber dimension is mildly enlarged. Aortic Valve The not well visualized prosthetic aortic valve is not well visualized. There is no prosthetic aortic valve stenosis with a peak velocity of 282 cm/s, mean gradient of 14 mmHg, and aortic valve area of 1.7 cm2. There is no regurgitation of theprosthetic aortic valve and leaflets were not well visualized. Pulmonic Valve The pulmonic valve is not well visualized. Mitral Valve Prosthetic mitral valve leaflets are not well visualized. There is trace regurgitation of the not well visualized prosthetic mitral valve although limited due to reverberation artifact. There is no stenosis of the prosthetic mitral valve. Tricuspid Valve The tricuspid valve leaflets are normal. There is moderate tricuspid valve regurgitation. No pulmonary hypertension, estimated pulmonary arterial systolic pressure is 28 mmHg. Pericardium/Pleural The pericardium appears normal. There is trivial pericardial effusion. Inferior Vena Cava Normal inferior vena cava with >50% collapse upon inspiration consistent with elevated right atrial pressure, 10 mmHg. Aorta The aortic root size at the sinus of Valsalva is normal. Left Ventricular Outflow Tract Name Value Normal
[2020-06-08] VITALS (21 sets, daily range): BP systolic 94–114; BP diastolic 55–76; PULSE 79–108; RESP 18–26; TEMP 35.7–36.7; O2SAT 93–100
[2020-06-08] MEDS: IPRATROPIUM BR 0.02% INH SOLN 0.5 MG/2.5 ML VIAL INHALATION ×4 (01:35→21:47)
[2020-06-08] MEDS: LEVALBUTEROL HFA (*SP) 15 GM INHALER 2 PUFF INHALATION ×2 (02:01→21:04)
[2020-06-08] MEDS: GABAPENTIN 100 MG CAPSULE PO ×3 (06:15→20:53)
[2020-06-08 06:35] LABS: INR 3.2; Prothrombin Time 33.6 Seconds (11.1-14.7)
[2020-06-08 06:44] LABS: Alanine Aminotransferase 17 U/L (4-35); Albumin Level 3.7 g/dL (3.5-5.1); Alkaline Phosphatase 89 U/L (38-126); Anion Gap 5 mmol/L (8-16); Aspartate Amino Transferase 26 U/L (14-36); Bilirubin,Total 0.5 mg/dL (0.2-1.3); Blood Urea Nitrogen 30 mg/dL (7-17); Carbon Dioxide 34 mmol/L (22-30); Chloride 100 mmol/L (98-107); Estimated CRCL calculation 46 ml/min; Estimated Glomerular Filt Rate 50; Glucose 100 mg/dL (65-105); Potassium 3.5 mmol/L (3.4-5.0); Sodium 139 mmol/L (137-145)
[2020-06-08] MEDS: POTASSIUM CHLORIDE 20 MEQ TABLET 40 MEQ PO (08:34)
[2020-06-08] MEDS: FLUoxetine HCL 20 MG CAPSULE 60 MG PO (08:35)
[2020-06-08] MEDS: FUROSEMIDE INJ 40 MG/4 ML VIAL IV PUSH ×2 (08:35→17:15)
[2020-06-08] MEDS: clonazePAM (*CRX) 0.5 MG TABLET PO ×2 (08:35→20:54)
[2020-06-08] MEDS: PRAMIPEXOLE 0.125 MG TABLET PO (08:36)
[2020-06-08] MEDS: ROSUVASTATIN 10 MG TABLET 20 MG PO (08:36)
[2020-06-08 10:35] LABS: Base Excess ABG 6.8 mEq/l (+/-2.0); Fractional Inspired Oxygen 28 %; HCO3 ABG 30.7 mEq/l (22.0-26.0); Oxygen Content ABG 13.2 %vol (16.0-22.0); Oxygen Saturation ABG 95.7 % (95.0-100.0); PCO2 ABG 41.2 mmHg (35.0-45.0); PO2 FiO2 Ratio Arterial Blood 2.61 %; Total Hemoglobin 9.9 g/dL (12.0-18.0)
[2020-06-08 10:37] LABS: Device NASAL CANNULA; Modified Allen's Test Pass; Site Drawn RIGHT RADIAL
[2020-06-08] MEDS: SODIUM CHLORIDE 0.9% IV 250 ML 30 ML IV CONT (13:05)
--- NOTE | 2020-06-08 14:05 | PM.IMPN ---
Progress Note: A&P Assessment and Plan (1) Respiratory failure with hypoxia: Code(s): J96.91 - Respiratory failure, unspecified with hypoxia Status: Acute Assessment and Plan: 06/08/20 14:05 patient is 60-year-old female presented with complaint of shortness of breath seen by account specialist suspect patient may have exacerbation of CHF resulting in pleural effusion and will need thoracentesis patient is being diuresed with IV Lasix 40 mg b.i.d., patient with mechanical aortic valve for which patient is on Coumadin however upon arrival her INR was 12.5, Coumadin is on hold, patient was given FFP and vitamin K this morning patient's INR is 3, patient cannot have a thoracentesis currently, once patient INR is close to 2.5 will start the patient on heparin and plan for thoracentesis. Repeat cardiac echo is pending patient will be seen by Cardiology and further recommendation to follow. 06/08 patient with moderate size left-sided pleural effusion today patient appears more short of breath repeat chest x-ray showed now pleural effusion is large, today patient INR is 3.2 discussed with account specialist we can give the patient FFP and lower INR to close to 1.7, for intervention radiologist to do the thoracentesis, I spoke with the intervention radiologist will repeat INR after patient is given FFP if INR is close to and less than 2 patient can have thoracentesis today, the intervention radiologist will let us know when to start Lovenox to bridge the patient. Patient will be seen by Cardiology and further recommendation to follow. Will continue to monitor, spoke with the patient's brother and gave him updates (2) Pleural effusion on left: Code(s): J90 - Pleural effusion, not elsewhere classified Status: Acute Assessment and Plan: On patient's INR is less than 2.5 will switch over to heparin drip and patient may have thoracentesis (3) Supratherapeutic INR: Code(s): R79.1 - Abnormal coagulation profile Status: Acute Assessment and Plan: Patient is noncompliant with INR follow-up, currently Coumadin on hold, patient was given FFP and vitamin K will monitor INR (4) Persistent atrial fibrillation: Code(s): I48.19 - Other persistent atrial fibrillation Status: Acute Assessment and Plan: Rate is controlled (5) Current use of intermediate anticoagulation: Code(s): Z79.01 - longterm (current) use of anticoagulants Status: Inactive Assessment and Plan: Plan is above (6) Valvular heart disease: Code(s): I38 - Endocarditis, valve unspecified Status: Inactive Assessment and Plan: On Coumadin INR is supratherapeutic (7) Chronic obstructive pulmonary disease: Code(s): J44.9 - Chronic obstructive pulmonary disease, unspecified Status: Inactive Assessment and Plan: Currently stable (8) Chronic anemia: Code(s): D64.9 - Anemia, unspecified Status: Inactive Assessment and Plan: Will monitor (9) Bipolar disorder: Code(s): F31.9 - Bipolar disorder, unspecified Status: Acute Assessment and Plan: Resume home medication and monitor (10) Anxiety: Code(s): F41.9 - Anxiety disorder, unspecified Status: Acute Assessment and Plan: Resume home medication and monitor (11) Mediastinal lymphadenopathy: Code(s): R59.0 - Localized enlarged lymph nodes Status: Acute Assessment and Plan: Most likely reactive however once clinically stable further evaluation will be done Subjective Date/time seen: 06/08/20 14:05 patient is 60-year-old female presented with complaint of shortness of breath seen by account specialist suspect patient may have exacerbation of CHF resulting in pleural effusion and will need thoracentesis patient is being diuresed with IV Lasix 40 mg b.i.d., patient with mechanical aortic valve for which patient is on Coumadin however upon arrival her INR was 12.5, Cou
[2020-06-08 16:02] LABS: INR 2.6; Prothrombin Time 28.1 Seconds (11.1-14.7)
--- NOTE | 2020-06-08 17:05 | PM.PNCARD ---
Progress Note: A&P Assessment and Plan (1) Acute on chronic diastolic CHF (congestive heart failure): Code(s): I50.33 - Acute on chronic diastolic (congestive) heart failure Status: Acute Assessment and Plan: Patient is admitted with shortness of breath and appears to have CHF on chest x-ray. BNP 1380 Continue furosemide 40 mg IV push b.i.d. monitor renal function and electrolytes. Blood pressure is running a little soft but so far tolerating current regimen. Echocardiogram personally reviewed EF 55-60% prosthetic valves not well visualized although no significant regurgitation or stenosis of the aortic or mitral prosthesis. Apparently, patient is scheduled for thoracentesis tomorrow once INR is 1.5 or less but required FFP earlier today due to INR of 3.2 and enlarging left pleural effusion. Once subtherapeutic heparin drip should be initiated until INR 2.5 or greater. Lovenox as an inpatient would not be most appropriate. (2) Hypokalemia: Code(s): E87.6 - Hypokalemia Status: Acute Assessment and Plan: Continue to monitor closely. Resolved, potassium 3.5. Give additional 40 mEq potassium. (3) Anemia: Code(s): D64.9 - Anemia, unspecified Status: Acute Assessment and Plan: Mild anemia no signs of active bleeding. With elevated LDH we should consider valvular hemolysis. Haptoglobin pending. Follow H&H. (4) Over-anticoagulated: Status: Acute Assessment and Plan: INR 12.9 initially, 3.2 today. She remains off warfarin. Patient has a history of noncompliance with Coumadin follow-up. If her INR goes less than 2.5, start heparin. Daily INRs. (5) Acute exacerbation of chronic obstructive airways disease: Code(s): J44.1 - Chronic obstructive pulmonary disease with (acute) exacerbation Status: Acute Assessment and Plan: Admitted actually with a diagnosis of COPD exacerbation. Got some steroids in the ER. No wheezing. Management per primary service. Patient appears to be in more respiratory distress due to large compressive pleural effusion. Patient would benefit from thoracentesis. Primary service managing at this time. Monitor for bleeding closely. (6) H/O mechanical aortic valve replacement: Code(s): Z95.2 - Presence of prosthetic heart valve Status: Acute Assessment and Plan: Mechanical aortic valve replacement 03/2021. prophylactic antibiotics Follow-up echo showed good valve function (7) History of mitral valve replacement with mechanical valve: Code(s): Z95.2 - Presence of prosthetic heart valve Status: Acute Assessment and Plan: History of remote mitral valve replacement. Keep INR 2.5-3.5. If INR drops below 2.5 initiate heparin drip. Prophylactic antibiotics (8) Atrial fibrillation with rapid ventricular response: Code(s): I48.91 - Unspecified atrial fibrillation Status: Acute Assessment and Plan: History of permanent atrial fibrillation. Rate was a little high initially but now is reasonable, on diltiazem. Continue to monitor. (9) Pleural effusion: Code(s): J90 - Pleural effusion, not elsewhere classified Status: Acute Assessment and Plan: now large, progressive since admission with compressive atelectasis, infiltrate on the left as well cannot exclude pneumonia. Subjective Date/time seen: Date of service:06/08/20 17:05 Follow-up for pleural effusion, supratherapeutic INR, aortic mitral valve replacement, shortness of breath, COPD, CHF patient complained of worsening shortness of breath overnight and this morning. Repeat chest x-ray ind
[2020-06-08 18:08] LABS: INR 2.5; Prothrombin Time 27.6 Seconds (11.1-14.7)
[2020-06-08] MEDS: ENOXAPARIN 80 MG/0.8 ML SYRINGE SUB-Q (20:54)
[2020-06-08] MEDS: DOCUSATE SODIUM 100 MG CAPSULE PO (22:55)
[2020-06-09] VITALS (20 sets, daily range): BP systolic 95–115; BP diastolic 59–73; PULSE 57–108; RESP 16–24; TEMP 35.8–36.9; O2SAT 92–97
[2020-06-09] MEDS: IPRATROPIUM BR 0.02% INH SOLN 0.5 MG/2.5 ML VIAL INHALATION ×4 (02:45→20:24)
[2020-06-09] MEDS: GABAPENTIN 100 MG CAPSULE PO ×3 (05:45→21:15)
[2020-06-09 06:48] LABS: INR 2.7; Prothrombin Time 29.3 Seconds (11.1-14.7)
[2020-06-09 07:10] LABS: Alanine Aminotransferase 16 U/L (4-35); Albumin Level 3.6 g/dL (3.5-5.1); Alkaline Phosphatase 90 U/L (38-126); Anion Gap 4 mmol/L (8-16); Aspartate Amino Transferase 29 U/L (14-36); Bilirubin,Total 0.5 mg/dL (0.2-1.3); Blood Urea Nitrogen 23 mg/dL (7-17); Calcium 8.8 mg/dL (8.4-10.2); Carbon Dioxide 34 mmol/L (22-30); Chloride 99 mmol/L (98-107); Estimated CRCL calculation 49 ml/min; Estimated Glomerular Filt Rate 56; Glucose 104 mg/dL (65-105); Potassium 3.3 mmol/L (3.4-5.0); Sodium 137 mmol/L (137-145)
[2020-06-09] MEDS: POTASSIUM CHLORIDE 20 MEQ TABLET 40 MEQ PO (08:35)
[2020-06-09] MEDS: clonazePAM (*CRX) 0.5 MG TABLET PO ×2 (08:35→21:15)
[2020-06-09] MEDS: FLUoxetine HCL 20 MG CAPSULE 60 MG PO (08:36)
[2020-06-09] MEDS: FUROSEMIDE INJ 40 MG/4 ML VIAL IV PUSH ×2 (08:36→16:22)
[2020-06-09] MEDS: PRAMIPEXOLE 0.125 MG TABLET PO (08:37)
[2020-06-09] MEDS: ROSUVASTATIN 10 MG TABLET 20 MG PO (08:37)
[2020-06-09] MEDS: SODIUM CHLORIDE 0.9% IV 250 ML 30 ML IV CONT (11:15)
[2020-06-09 13:36] LABS: INR 2.2
--- NOTE | 2020-06-09 14:00 | PM.IMPN ---
Progress Note: A&P Assessment and Plan (1) Respiratory failure with hypoxia: Code(s): J96.91 - Respiratory failure, unspecified with hypoxia Status: Acute Assessment and Plan: 06/09/20 14:00 patient is 60-year-old female presented with complaint of shortness of breath seen by bill peddler suspect patient may have exacerbation of CHF resulting in pleural effusion and will need thoracentesis patient is being diuresed with IV Lasix 40 mg b.i.d., patient with mechanical aortic valve for which patient is on Coumadin however upon arrival her INR was 12.5, Coumadin is on hold, patient was given FFP and vitamin K this morning patient's INR is 3, patient cannot have a thoracentesis currently, once patient INR is close to 2.5 will start the patient on heparin and plan for thoracentesis. Repeat cardiac echo is pending patient will be seen by Cardiology and further recommendation to follow. 06/08 patient with moderate size left-sided pleural effusion today patient appears more short of breath repeat chest x-ray showed now pleural effusion is large, today patient INR is 3.2 discussed with bill peddler we can give the patient FFP and lower INR to close to 1.7, for intervention radiologist to do the thoracentesis, I spoke with the intervention radiologist will repeat INR after patient is given FFP if INR is close to and less than 2 patient can have thoracentesis today, the intervention radiologist will let us know when to start Lovenox to bridge the patient. Patient will be seen by Cardiology and further recommendation to follow. Will continue to monitor, spoke with the patient's brother and gave him updates. 06/09 patient admitted with moderate size left-sided pleural effusion on 06/09 patient appears more short of breath repeat chest x-ray showed now pleural effusion is large, and repeat patient INR was 3.2 discussed with bill peddler we can give the patient FFP and lower INR to close to 1.7, for intervention radiologist to do the thoracentesis, I spoke with the intervention radiologist will repeat INR after patient is given FFP if INR is close to and less than 2 patient can have thoracentesis however after FFP on 06/08 her INR was 2.5, this morning her was 2.7 and patient was given another FFP today and repeat INR is 2.2 today and interventional radiologist like INR to be below 2, for thoracentesis, patient is clinically stable address however see gets short winded with any exertion will continue to diurese, Patient will be seen by Cardiology and further recommendation to follow. Will continue to monitor, spoke with the patient's brother and gave him updates on 06/08 (2) Pleural effusion on left: Code(s): J90 - Pleural effusion, not elsewhere classified Status: Acute Assessment and Plan: On patient's INR is less than 2.5 will switch over to heparin drip and patient may have thoracentesis (3) Supratherapeutic INR: Code(s): R79.1 - Abnormal coagulation profile Status: Acute Assessment and Plan: Patient is noncompliant with INR follow-up, currently Coumadin on hold, patient was given FFP and vitamin K will monitor INR (4) Persistent atrial fibrillation: Code(s): I48.19 - Other persistent atrial fibrillation Status: Acute Assessment and Plan: Rate is controlled (5) Current use of skilled nursing anticoagulation: Code(s): Z79.01 - prison (current) use of anticoagulants Status: Inactive Assessment and Plan: Plan is above (6) Valvular heart disease: Code(s): I38 - Endocarditis, valve unspecified Status: Inactive Assessment and Plan: On Coumadin INR is supratherapeutic (7) Chronic obstructive pulmonary disease: Code(s): J44.9 - Chronic obstructive pulmonary disease, unspecified Status: Inactive Assessment and Plan: Currently stable (8) Chronic anemia: Code(s): D64.9 - Anemia, unspecified Status: Inactive Assessmen
--- NOTE | 2020-06-09 16:37 | PM.PNCARD ---
Progress Note: A&P Assessment and Plan (1) Pleural effusion: Code(s): J90 - Pleural effusion, not elsewhere classified Status: Acute Assessment and Plan: now large, progressive since admission with compressive atelectasis, infiltrate on the left as well cannot exclude pneumonia. if INR 2.2 tomorrow morning give 1 unit FFP and proceed with thoracentesis. If greater than 2.2 give 2 units FFP. If thoracentesis required must move forward patient comfort and stability. Repeat chest x-ray in a.m.. (2) Acute on chronic diastolic CHF (congestive heart failure): Code(s): I50.33 - Acute on chronic diastolic (congestive) heart failure Status: Acute Assessment and Plan: Patient is admitted with shortness of breath and appears to have CHF on chest x-ray. BNP 1380 Continue furosemide 40 mg IV push b.i.d. monitor renal function and electrolytes. Blood pressure is running a little soft but so far tolerating current regimen. Echocardiogram personally reviewed EF 55-60% prosthetic valves not well visualized although no significant regurgitation or stenosis of the aortic or mitral prosthesis. Continue diuresis. Close clinical management. Thoracentesis planned yet has been delayed due to elevated INR and bleeding concerns. (3) Over-anticoagulated: Status: Acute Assessment and Plan: INR 12.9 initially She remains off warfarin. Patient has a history of noncompliance with Coumadin follow-up. If her INR goes less than 2.5, start heparin. Daily INRs. She has been given intermittent subcutaneous Lovenox for bridging due to uncertainty as to when thoracentesis may be performed. (4) Acute exacerbation of chronic obstructive airways disease: Code(s): J44.1 - Chronic obstructive pulmonary disease with (acute) exacerbation Status: Acute Assessment and Plan: Admitted actually with a diagnosis of COPD exacerbation. Got some steroids in the ER. No wheezing. Management per primary service. Patient appears to be in more respiratory distress due to large compressive pleural effusion. Patient would benefit from thoracentesis. Primary service managing at this time. Monitor for bleeding closely. (5) H/O mechanical aortic valve replacement: Code(s): Z95.2 - Presence of prosthetic heart valve Status: Acute Assessment and Plan: Mechanical aortic valve replacement 03/2021. prophylactic antibiotics Follow-up echo showed good valve function (6) History of mitral valve replacement with mechanical valve: Code(s): Z95.2 - Presence of prosthetic heart valve Status: Acute Assessment and Plan: History of remote mitral valve replacement. Keep INR 2.5-3.5. If INR drops below 2.5 initiate heparin drip. Prophylactic antibiotics. Enoxaparin while in the hospital is not my recommendation was INR persistently low 2.5. As an outpatient while not FDA approved this may be considered alternative. (7) Atrial fibrillation with rapid ventricular response: Code(s): I48.91 - Unspecified atrial fibrillation Status: Acute Assessment and Plan: History of permanent atrial fibrillation. Rate was a little high initially but now is reasonable, on diltiazem. Continue to monitor. (8) Hypokalemia: Code(s): E87.6 - Hypokalemia Status: Acute Assessment and Plan: Continue to monitor closely. potassium 3.3 this morning, given additional 40 mEq potassium. (9) Anemia: Code(s): D64.9 - Anemia, unspecified Status: Acute Assessment and Plan: Mild anemia no signs of active bleeding. With elevated LDH we should consider valvular hemolysis. Follow H&H.
[2020-06-09 20:53] LABS: Haptoglobin 15 mg/dL (43-212)
[2020-06-09] MEDS: ACETAMINOPHEN 325 MG TABLET 650 MG PO (21:14)
[2020-06-09] MEDS: ENOXAPARIN 80 MG/0.8 ML SYRINGE SUB-Q (21:15)
[2020-06-10] VITALS (22 sets, daily range): BP systolic 98–117; BP diastolic 42–77; PULSE 74–108; RESP 18–30; TEMP 36.1–36.6; O2SAT 89–100
[2020-06-10] MEDS: IPRATROPIUM BR 0.02% INH SOLN 0.5 MG/2.5 ML VIAL INHALATION ×4 (02:03→20:39)
[2020-06-10 06:15] LABS: INR 2.1; Prothrombin Time 24.4 Seconds (11.1-14.7)
[2020-06-10] MEDS: GABAPENTIN 100 MG CAPSULE PO ×3 (06:21→22:34)
[2020-06-10 06:32] LABS: Alanine Aminotransferase 16 U/L (4-35); Albumin Level 3.8 g/dL (3.5-5.1); Alkaline Phosphatase 97 U/L (38-126); Anion Gap 4 mmol/L (8-16); Aspartate Amino Transferase 30 U/L (14-36); Bilirubin,Total 0.7 mg/dL (0.2-1.3); Blood Urea Nitrogen 22 mg/dL (7-17); Calcium 9.1 mg/dL (8.4-10.2); Carbon Dioxide 33 mmol/L (22-30); Chloride 101 mmol/L (98-107); Estimated CRCL calculation 54 ml/min; Estimated Glomerular Filt Rate > 60; Glucose 108 mg/dL (65-105); Potassium 3.5 mmol/L (3.4-5.0); Sodium 138 mmol/L (137-145)
[2020-06-10 10:44] LABS: Lactate Dehydrogenase 992 U/L (313-618)
--- NOTE | 2020-06-10 13:54 | PM.IMPN ---
Progress Note: A&P Assessment and Plan (1) Respiratory failure with hypoxia: Code(s): J96.91 - Respiratory failure, unspecified with hypoxia Status: Acute Assessment and Plan: Secondary to left-sided pleural effusion -Plan for thoracentesis today - CTA negative for PE 06/06/20 -etiology could be heart failure, pneumonia, cancer (see CT abnormalities), etc - await thoracentesis to see if transudate or exudate and adjust therapy as needed - doxycycline has been started due to patient's allergies and QT prolongation, await g stain - spoke with Dr. Chase and Radiology, if patient does not have any bleeding overnight, would start heparin drip in the morning and then add warfarin until INR therapeutic since she has a mechanical valve - continue Lasix 40 mg b.i.d. - patient has Lopez catheter for accurate I&Os and has been diuresing well. remove Lopez catheter when everyone agrees (2) Pleural effusion on left: Code(s): J90 - Pleural effusion, not elsewhere classified Status: Acute Assessment and Plan: as above (3) Supratherapeutic INR: Code(s): R79.1 - Abnormal coagulation profile Status: Acute Assessment and Plan: resolved - radiology recommends waiting until the morning to start a heparin drip as long she has no bleeding - at that time, may consider warfarin and will stop heparin once INR in range (2.5-3.5) (4) Persistent atrial fibrillation: Code(s): I48.19 - Other persistent atrial fibrillation Status: Acute Assessment and Plan: rate is controlled at this time - continue diltiazem (5) Current use of intermediate anticoagulation: Code(s): 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 as needed (8) Chronic anemia: Code(s): D64.9 - Anemia, unspecified Status: Inactive Assessment and Plan: hemoglobin 8.1 - iron studies, B12 and folate does not show etiology - likely anemia chronic disease - may consider guaiac testing outpatient, hemoglobin stable at this time (9) Bipolar disorder: Code(s): F31.9 - Bipolar disorder, unspecified Status: Acute Assessment and Plan: in good spirits - continue clonazepam and Prozac (10) Anxiety: Code(s): F41.9 - Anxiety disorder, unspecified Status: Acute Assessment and Plan: chronic and stable (11) Mediastinal lymphadenopathy: Code(s): R59.0 - Localized enlarged lymph nodes Status: Acute Assessment and Plan: Noted on CT this stay and on 01/12/2020 -Will need further imaging such as a PET scan -Will order CT abomdmen and pelvis -Consider lymphoma -May want to consider oncology consult outpt or biopsy as this has not been worked up and seen back in december -Needs updated mammogram and colonscopy Time Spent With Patient Time with patient: 25 - 35 minutes Subjective Date/time seen: 06/10/20 13:54 Interval history: Pt is a 82-year-old female here for pleural effusion. Patient was seen today and states she still feels short of breath. She says it is mostly with lying on her back and with any movement. At rest she states she is not very short of breath but has some conversational dyspnea. She denies chest pain, fevers, chills, nausea, vomiting, leg swelling, abdominal pain or headache. She has some back pain from the bed and request a heating pad. Review of Systems Review of Systems: All systems reviewe
[2020-06-10] MEDS: LIDOCAINE 5% PATCH 1 PATCH TRANSDERM (14:44)
[2020-06-10] MEDS: FLUoxetine HCL 20 MG CAPSULE 60 MG PO (14:51)
[2020-06-10] MEDS: ROSUVASTATIN 10 MG TABLET 20 MG PO (14:51)
[2020-06-10 14:52] LABS: Hematocrit 29.6 % (37.0-47.0); Hemoglobin 8.9 g/dL (12.0-15.0)
[2020-06-10] MEDS: PRAMIPEXOLE 0.125 MG TABLET PO (14:52)
[2020-06-10 16:34] LABS: Appearance Pleural Fluid Bloody (Clear); Color Pleural Fluid Red (Colorless); Pleural fluid source Pleural fluid
[2020-06-10 16:35] LABS: Nucleated Cell Pleural Fluid 448 /uL (0-1000)
[2020-06-10 16:36] LABS: Lymphocytes Pleural Fluid 68 %; Macrophages Pleural Fluid 5 %; Neutrophils Pleural Fluid 27 % (0-25)
[2020-06-10] MEDS: FUROSEMIDE INJ 40 MG/4 ML VIAL IV PUSH (16:52)
[2020-06-10 20:00] LABS: Hematocrit 31.3 % (37.0-47.0); Hemoglobin 9.8 g/dL (12.0-15.0)
[2020-06-10] MEDS: clonazePAM (*CRX) 0.5 MG TABLET PO (20:17)
[2020-06-10] MEDS: ACETAMINOPHEN 325 MG TABLET 650 MG PO (21:14)
[2020-06-10] MEDS: MELATONIN 5 MG TABLET PO (21:15)
[2020-06-11] VITALS (16 sets, daily range): BP systolic 99–119; BP diastolic 51–67; PULSE 83–124; RESP 18–20; TEMP 36.2–36.9; O2SAT 92–96
[2020-06-11 02:53] LABS: Hematocrit 31.3 % (37.0-47.0); Hemoglobin 9.7 g/dL (12.0-15.0)
[2020-06-11] MEDS: IPRATROPIUM BR 0.02% INH SOLN 0.5 MG/2.5 ML VIAL INHALATION ×4 (02:54→21:28)
[2020-06-11 06:08] LABS: Basophils Absolute Auto 0.1 K/mm3 (0.0-0.1); Basophils Percent Auto 0.6 % (0.2-1.2); Eosinophils Absolute Auto 0.8 K/mm3 (0-0.3); Eosinophils Percent Auto 8.3 % (0-4.4); Hematocrit 30.9 % (37.0-47.0); Hemoglobin 9.5 g/dL (12.0-15.0); Immature Granulocyte Absolute 0.11 K/mm3 (0.00-0.031); Immature Granulocyte Percent A 1.1 % (0-0.5); Lymphocytes Absolute Auto 1.62 K/mm3 (0.9-3.2); Lymphocytes Percent Auto 16.1 % (18.3-44.2); Mean Corpuscular HGB Conc 30.7 g/dl (32-36); Mean Corpuscular Hemoglobin 27.4 pg (26-34); Mean Platelet Volume 9.6 fl (7.4-10.4); Monocytes Absolute Auto 0.8 K/mm3 (0.1-0.6); Monocytes Percent Auto 7.8 % (2.6-8.5); Neutrophils Absolute Auto 6.7 K/mm3 (1.3-6.7); Neutrophils Percent Auto 66.1 % (45.5-73.1); Platelet Count Result 434 k/mm3 (150-375); Red Blood Count 3.47 M/mm3 (4.2-5.4); Red Cell Distribution Width 15.6 % (11.5-14.5); White Blood Count 10.1 K/mm3 (4.5-10.0)
[2020-06-11 06:19] LABS: INR 2.1; Prothrombin Time 24.5 Seconds (11.1-14.7)
[2020-06-11 06:28] LABS: Alanine Aminotransferase 16 U/L (4-35); Albumin Level 3.6 g/dL (3.5-5.1); Alkaline Phosphatase 104 U/L (38-126); Anion Gap 3 mmol/L (8-16); Aspartate Amino Transferase 24 U/L (14-36); Bilirubin,Total 0.6 mg/dL (0.2-1.3); Blood Urea Nitrogen 18 mg/dL (7-17); Calcium 9.1 mg/dL (8.4-10.2); Carbon Dioxide 34 mmol/L (22-30); Chloride 101 mmol/L (98-107); Estimated CRCL calculation 49 ml/min; Estimated Glomerular Filt Rate 56; Glucose 112 mg/dL (65-105); Potassium 3.2 mmol/L (3.4-5.0); Sodium 138 mmol/L (137-145)
[2020-06-11] MEDS: FLUoxetine HCL 20 MG CAPSULE 60 MG PO (08:54)
[2020-06-11] MEDS: POTASSIUM CHLORIDE 20 MEQ TABLET 40 MEQ PO (08:54)
[2020-06-11] MEDS: clonazePAM (*CRX) 0.5 MG TABLET PO ×2 (08:54→20:33)
[2020-06-11] MEDS: ROSUVASTATIN 10 MG TABLET 20 MG PO (08:56)
[2020-06-11] MEDS: PRAMIPEXOLE 0.125 MG TABLET PO (08:57)
[2020-06-11] MEDS: LIDOCAINE 5% PATCH 1 PATCH TRANSDERM (08:57)
[2020-06-11] MEDS: FUROSEMIDE INJ 40 MG/4 ML VIAL IV PUSH ×2 (08:58→17:23)
--- NOTE | 2020-06-11 15:17 | PM.IMPN ---
Progress Note: A&P Assessment and Plan (1) Respiratory failure with hypoxia: Code(s): J96.91 - Respiratory failure, unspecified with hypoxia Status: Acute Assessment and Plan: Secondary to left-sided pleural effusion - CTA negative for PE 06/06/20 -etiology could be heart failure, pneumonia, cancer, or bleeding into the pleural space -Thoracentesis yesterday with removal of 400mL of bloody dark maroon-colored fluid. - doxycycline was started; Gram stain negative for MO and very few WBC; Culture and BCx NGTD -patient did not have any bleeding overnight, Hgb 9.5 and INR 2.1 so will start heparin drip without bolus -resume warfarin tongiht until INR therapeutic since she has a mechanical valve - continue Lasix 40 mg IV b.i.d. - patient has Lopez catheter for accurate I&Os and has been diuresing well. remove Lopez catheter when everyone agrees (2) Pleural effusion on left: Code(s): J90 - Pleural effusion, not elsewhere classified Status: Acute Assessment and Plan: CT A/P today showing small bilateral pleural effusions. As above. Will need to monitor HH, symptoms and CXR to ensure that she does not rebleed into her pleural space. (3) Supratherapeutic INR: Code(s): R79.1 - Abnormal coagulation profile Status: Acute Assessment and Plan: INR 13 on admission. She has not been able to have her INR checked. Spoke with CC and patient will need INR checks on Sunday and at home and this has been arranged. 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 She also had aortic stenosis status post aortic valve replacement in March 2020. Echo showing valves well seated. Was on Coumadin on admisison. Will resume. - see above (7) Chronic obstructive pulmonary disease: Code(s): J44.9 - Chronic obstructive pulmonary disease, unspecified Status: Inactive Assessment and Plan: No wheezing at this time - Xopenex available as needed (8) Chronic anemia: Code(s): D64.9 - Anemia, unspecified Status: Inactive Assessment and Plan: hemoglobin better at 9.5. - iron studies, B12 and folate does not show etiology; Ramy negative - likely anemia chronic disease and/or acute blood loss into the pleural space - follow HH (9) Bipolar disorder: Code(s): F31.9 - Bipolar disorder, unspecified Status: Acute Assessment and Plan: In good spirits. Continue clonazepam and Prozac. (10) Anxiety: Code(s): F41.9 - Anxiety disorder, unspecified Status: Acute Assessment and Plan: As above. Chronic and stable (11) Mediastinal lymphadenopathy: Code(s): R59.0 - Localized enlarged lymph nodes Status: Acute Assessment and Plan: Noted on CT this stay and on 01/12/2020 -Will need further imaging such as a PET scan -CT abdomen and pelvis showng no signifincat adenopathy -Consider lymphoma -May want to consider oncology consult outpt or biopsy as this has not been worked up and seen back in december -Needs updated mammogram and colonoscopy (12) Acute on chronic diastolic CHF (congestive heart failure): Code(s): I50.33 - Acute on chronic diastolic (congestive) heart failure Status: Acute Assessment and Plan: Post-thoracentesis showing findings consistent with CHF exacerbation. CT A/P also showing CM
[2020-06-11] MEDS: GABAPENTIN 100 MG CAPSULE PO ×2 (15:34→21:45)
[2020-06-11] MEDS: HEPARIN SOD/D5W 100 UNITS/ML 25,000 UNITS/250 ML BAG 11 UNITS IV CONT (15:57)
--- NOTE | 2020-06-11 16:30 | PM.PNCARD ---
Progress Note: A&P Assessment and Plan (1) Pleural effusion: Code(s): J90 - Pleural effusion, not elsewhere classified Status: Acute Assessment and Plan: now large, progressive since admission with compressive atelectasis, infiltrate on the left as well cannot exclude pneumonia. if INR 2.2 tomorrow morning give 1 unit FFP and proceed with thoracentesis. If greater than 2.2 give 2 units FFP. If thoracentesis required must move forward patient comfort and stability. Repeat chest x-ray in a.m.. (2) Acute on chronic diastolic CHF (congestive heart failure): Code(s): I50.33 - Acute on chronic diastolic (congestive) heart failure Status: Acute Assessment and Plan: Patient is admitted with shortness of breath and HFpEF. -Breathing much improved post thoracentesis. -Continue Furosemide 40 mg IV BID monitor renal function and electrolytes. Echocardiogram personally reviewed EF 55-60% prosthetic valves not well visualized although no significant regurgitation or stenosis of the aortic or mitral prosthesis. (3) Over-anticoagulated: Status: Acute Assessment and Plan: INR 12.9 initially She remains off warfarin. Patient has a history of noncompliance with Coumadin follow-up. Continue heparin until INR 2.5 or greater. Monitor for bleeding. Repeat chest x-ray. Follow H&H. Daily INRs. (4) Acute exacerbation of chronic obstructive airways disease: Code(s): J44.1 - Chronic obstructive pulmonary disease with (acute) exacerbation Status: Acute Assessment and Plan: Stable, per primary service. (5) H/O mechanical aortic valve replacement: Code(s): Z95.2 - Presence of prosthetic heart valve Status: Acute Assessment and Plan: Mechanical aortic valve replacement 03/2021. prophylactic antibiotics Follow-up echo showed good valve function (6) History of mitral valve replacement with mechanical valve: Code(s): Z95.2 - Presence of prosthetic heart valve Status: Acute Assessment and Plan: History of remote mitral valve replacement. Keep INR 2.5-3.5. Heparin until INR 2.5 or greater. (7) Atrial fibrillation with rapid ventricular response: Code(s): I48.91 - Unspecified atrial fibrillation Status: Acute Assessment and Plan: History of permanent atrial fibrillation. Rate was a little high initially but now is reasonable, on diltiazem. Continue to monitor. BP rather soft, unable to up titrate diltiazem. (8) Hypokalemia: Code(s): E87.6 - Hypokalemia Status: Acute Assessment and Plan: Continue to monitor closely. potassium 3.3 this morning, given additional 40 mEq potassium. She has required for the past several days. I would schedule at this point on IV Lasix. Check BMP in a.m.. (9) Anemia: Code(s): D64.9 - Anemia, unspecified Status: Acute Assessment and Plan: Mild anemia no signs of active bleeding. Follow H&H. Subjective Date/time seen: Date of service: 06/11/20 16:30 Follow-up for mechanical mitral valve, supratherapeutic INR, CHF patient feels much better after thoracentesis. She is now off oxygen, breathing much better and she reports she is ambulating without significant difficulty. She denies chest pain or significant exertional dyspnea. No dizziness. Started on heparin drip this afternoon. Review of Systems Review of Systems: All systems reviewed & are unremarkable except as noted in HPI and below Constitutional: Constitutional: Reports as per HPI, Denies chills, Reports fatigue and Reports weakness Eyes: Eyes: Reports as per HPI and Reports
[2020-06-11 16:50] LABS: INR 2.2; Prothrombin Time 25.4 Seconds (11.1-14.7)
[2020-06-11 16:51] LABS: Partial Thromboplastin Time 34.9 SECONDS (22.3-36.8)
[2020-06-11] MEDS: WARFARIN (*PBKC) 4 MG TABLET PO (17:23)
[2020-06-11] MEDS: ACETAMINOPHEN 325 MG TABLET 650 MG PO (20:33)
[2020-06-11] MEDS: MELATONIN 5 MG TABLET PO (20:33)
[2020-06-11 22:19] LABS: Partial Thromboplastin Time 31.4 SECONDS (22.3-36.8)
[2020-06-11] MEDS: HEPARIN SODIUM 5,000 UNITS/ML VIAL 2500 UNITS IV PUSH (22:40)
[2020-06-12] VITALS (14 sets, daily range): BP systolic 100–117; BP diastolic 61–79; PULSE 91–133; RESP 16–20; TEMP 36.1–36.8; O2SAT 94–97
[2020-06-12] MEDS: IPRATROPIUM BR 0.02% INH SOLN 0.5 MG/2.5 ML VIAL INHALATION ×2 (02:38→07:27)
[2020-06-12 04:11] LABS: Basophils Absolute Auto 0.1 K/mm3 (0.0-0.1); Basophils Percent Auto 0.5 % (0.2-1.2); Eosinophils Absolute Auto 0.9 K/mm3 (0-0.3); Eosinophils Percent Auto 7.7 % (0-4.4); Hematocrit 32.2 % (37.0-47.0); Hemoglobin 10.1 g/dL (12.0-15.0); Immature Granulocyte Absolute 0.12 K/mm3 (0.00-0.031); Lymphocytes Absolute Auto 2.29 K/mm3 (0.9-3.2); Lymphocytes Percent Auto 19.7 % (18.3-44.2); Mean Corpuscular HGB Conc 31.4 g/dl (32-36); Mean Corpuscular Volume 89.2 fl (80-100); Mean Platelet Volume 9.3 fl (7.4-10.4); Monocytes Percent Auto 8.8 % (2.6-8.5); Neutrophils Absolute Auto 7.3 K/mm3 (1.3-6.7); Neutrophils Percent Auto 62.3 % (45.5-73.1); Platelet Count Result 426 k/mm3 (150-375); Red Blood Count 3.61 M/mm3 (4.2-5.4); Red Cell Distribution Width 15.6 % (11.5-14.5); White Blood Count 11.6 K/mm3 (4.5-10.0)
[2020-06-12 04:21] LABS: INR 2.1; Prothrombin Time 23.8 Seconds (11.1-14.7)
[2020-06-12 04:23] LABS: Partial Thromboplastin Time 104.9 SECONDS (22.3-36.8)
[2020-06-12 04:25] LABS: Anion Gap 7 mmol/L (8-16); Blood Urea Nitrogen 23 mg/dL (7-17); Calcium 9.4 mg/dL (8.4-10.2); Carbon Dioxide 31 mmol/L (22-30); Chloride 100 mmol/L (98-107); Estimated CRCL calculation 49 ml/min; Estimated Glomerular Filt Rate 56; Glucose 120 mg/dL (65-105); Magnesium 1.7 mg/dL (1.6-2.3); Potassium 3.3 mmol/L (3.4-5.0); Sodium 138 mmol/L (137-145)
[2020-06-12] MEDS: GABAPENTIN 100 MG CAPSULE PO ×3 (05:29→21:46)
[2020-06-12] MEDS: POTASSIUM CHLORIDE 20 MEQ TABLET 40 MEQ PO (09:26)
[2020-06-12] MEDS: clonazePAM (*CRX) 0.5 MG TABLET PO ×2 (09:26→21:43)
[2020-06-12] MEDS: LIDOCAINE 5% PATCH 1 PATCH TRANSDERM (09:28)
[2020-06-12] MEDS: FLUoxetine HCL 20 MG CAPSULE 60 MG PO (09:28)
[2020-06-12] MEDS: PRAMIPEXOLE 0.125 MG TABLET PO (09:28)
[2020-06-12] MEDS: ROSUVASTATIN 10 MG TABLET 20 MG PO (09:28)
[2020-06-12] MEDS: FUROSEMIDE INJ 40 MG/4 ML VIAL IV PUSH ×2 (09:29→18:00)
[2020-06-12 10:18] LABS: Partial Thromboplastin Time 91.9 SECONDS (22.3-36.8)
--- NOTE | 2020-06-12 10:22 | PCPTNOTE ---
Attempted PT eval. Kelsy HAWTHORNE stated to hold PT due to increased HR. Will try again later today.
--- NOTE | 2020-06-12 10:48 | PCOTNOTE ---
Attempted OT evaluation. Kelsy HAWTHORNE stated to hold OT for the morning due to increased HR and patient not feeling well. Will follow and attempt in afternoon.
--- NOTE | 2020-06-12 13:02 | PCOTNOTE ---
Attempted OT evaluation. Kelsy HAWTHORNE stated to hold OT for the afternoon and attempt tomorrow. Will follow and attempt in tomorrow.
--- NOTE | 2020-06-12 13:05 | PCPTNOTE ---
Attempted PT nathen. Kelsy HAWTHORNE states to hold PT. Will try again tomorrow
--- NOTE | 2020-06-12 13:09 | PM.PNCARD ---
Progress Note: A&P Assessment and Plan (1) Atrial fibrillation with rapid ventricular response: Code(s): I48.91 - Unspecified atrial fibrillation Status: Acute Assessment and Plan: History of permanent atrial fibrillation. Rate was a little high initially but now is reasonable, on diltiazem. Continue to monitor. BP rather soft, unable to up titrate diltiazem. (2) Acute on chronic diastolic CHF (congestive heart failure): Code(s): I50.33 - Acute on chronic diastolic (congestive) heart failure Status: Acute Assessment and Plan: Patient is admitted with shortness of breath and HFpEF. -Breathing much improved post thoracentesis. -BP stable but a little soft, more tachycardic in atrial fibrillation. If chest x-ray stable, transition to oral diuretic tomorrow 40 mg p.o. b.i.d.. Echocardiogram personally reviewed EF 55-60% prosthetic valves not well visualized although no significant regurgitation or stenosis of the aortic or mitral prosthesis. (3) Pleural effusion: Code(s): J90 - Pleural effusion, not elsewhere classified Status: Acute Assessment and Plan: status post thoracentesis, improved subjective shortness of breath, aeration. Repeat chest x-ray. Monitor for bleeding. (4) History of mitral valve replacement with mechanical valve: Code(s): Z95.2 - Presence of prosthetic heart valve Status: Acute Assessment and Plan: History of remote mitral valve replacement. Keep INR 2.5-3.5. Heparin until INR 2.5 or greater. Warfarin resume 4 mg daily. INR 2.1 today. (5) H/O mechanical aortic valve replacement: Code(s): Z95.2 - Presence of prosthetic heart valve Status: Acute Assessment and Plan: Mechanical aortic valve replacement 03/2021. prophylactic antibiotics Follow-up echo showed good valve function (6) Hypokalemia: Code(s): E87.6 - Hypokalemia Status: Acute Assessment and Plan: Continue to monitor closely. potassium 3.3 this morning, given additional 40 mEq potassium. She has required for the past several days. Check BMP in a.m.. (7) Anemia: Code(s): D64.9 - Anemia, unspecified Status: Acute Assessment and Plan: Stable. Follow H&H. (8) Acute exacerbation of chronic obstructive airways disease: Code(s): J44.1 - Chronic obstructive pulmonary disease with (acute) exacerbation Status: Acute Assessment and Plan: Stable, per primary service. (9) Over-anticoagulated: Status: Acute Assessment and Plan: INR 12.9 initially Patient apparently has a history of noncompliance with Coumadin follow-up. Continue heparin until INR 2.5 or greater. Monitor for bleeding. Repeat chest x-ray. Follow H&H. Daily INRs. Subjective Date/time seen: Date of service: 06/12/20 13:09 Follow-up for supratherapeutic INR, mechanical mitral valve, AVR, permanent atrial fibrillation patient states she feels well, denies shortness of breath with activity. Able to lie flat. Speaking in full sentences. Denies new chest pain only soreness in the chest wall. Denies bleeding, palpitations or dizziness. Patient intermittently tachycardic in AFib heart rate up to 120 to 130s fair control overall. BP little soft 90s to 100s in general. Review of Systems Review of Systems: All systems reviewed & are unremarkable except as noted in HPI and below Constitutional: Constitutional: Reports as per HPI, Denies chills, Reports fatigue and Denies weakness Eyes: Eyes: Reports as per HPI and Reports no additional eye complaints ENT: Reports as per HPI, Denies epistaxis,
[2020-06-12] MEDS: HEPARIN SOD/D5W 100 UNITS/ML 25,000 UNITS/250 ML BAG 12 UNITS IV CONT (13:33)
[2020-06-12] MEDS: DOCUSATE SODIUM 100 MG CAPSULE PO (14:55)
--- NOTE | 2020-06-12 15:08 | PM.IMPN ---
Progress Note: A&P Assessment and Plan (1) Respiratory failure with hypoxia: Code(s): J96.91 - Respiratory failure, unspecified with hypoxia Status: Acute Assessment and Plan: Secondary to left-sided pleural effusion. She is maintaining adequate O2 saturations on room air. CTA negative for PE 06/06/20. Etiology could be heart failure, pneumonia, cancer, or bleeding into the pleural space (especially given INR 13 upon presentation). She underwent thoracentesis on 06/10 yielded 400 mL bloody, dark maroon-colored fluid - doxycycline was started; pleural fluid cultures and blood cultures with NGTD. - continue heparin drip started on 06/11/20 - continue Lasix 40 mg IV b.i.d. - patient has Lopez catheter for accurate I&Os and has been diuresing well. Negative 4 L fluid balance. Remove Lopez catheter when everyone agrees (2) Pleural effusion on left: Code(s): J90 - Pleural effusion, not elsewhere classified Status: Acute Assessment and Plan: CT a/p 06/11 showed small bilateral pleural effusions, improved following thoracentesis on 06/10. Plan as above. Will need to monitor H&H, clinical symptoms and CXR to ensure that she does not rebleed into her pleural space. Repeat CXR this afternoon. (3) Current use of snf anticoagulation: Code(s): Z79.01 - long term care social worker (current) use of anticoagulants Status: Inactive Assessment and Plan: She is on warfarin due to mechanical valve. INR supratherapeutic at 13 on admission, which improved following holding warfarin. Now INR is subtherapeutic at 2.1. She needs to be above 2.5 due to her mechanical valves. Continue with heparin drip. This can be discontinued when INR is >2.5 Continue warfarin 4 mg daily Patient will receive twice weekly INR checks on Tuesdays and upon discharge. This has been arranged with care coordination. Cardiology following and input appreciated. (4) Persistent atrial fibrillation: Code(s): I48.19 - Other persistent atrial fibrillation Status: Acute Assessment and Plan: rate is fairly well controlled, mostly hovering around 100. She does have increases up to 130, especially with activity Continue diltiazem Appreciate cardiology input. Discussed case with Dr. Chase. Based on her blood pressures, there is not room to increase her diltiazem at this time. Will monitor her heart rate closely. Continue telemetry. Continue warfarin as above (5) Acute on chronic diastolic CHF (congestive heart failure): Code(s): I50.33 - Acute on chronic diastolic (congestive) heart failure Status: Acute Assessment and Plan: Post-thoracentesis showing findings consistent with CHF exacerbation. CT a/p showed findings consistent with CHF including cardiomegaly, mild pulmonary edema, and small bilateral pleural effusions. Continue IV Lasix as above monitor daily weights, intake and output. Continue heart healthy diet. Appreciate cardiology input repeat chest x-ray this afternoon. Based on results, can consider transition to p.o. diuretic per Cardiology (6) Chronic obstructive pulmonary disease: Code(s): J44.9 - Chronic obstructive pulmonary disease, unspecified Status: Inactive Assessment and Plan: does not appear to be in acute exacerbation. No wheezing noted on exam. Maintaining adequate O2 sats on room air. Albuterol MDI b.i.d. scheduled (7) Valvular heart disease: Code(s): I38 - Endocarditis, valve unspecified Status: Inactive Assessment and Plan: Patient had mitral valve prolapse status post mechanical mitral valve replacement in the 1991. She also had aortic stenosis status post aortic valve replacement in March 2020. Echo showing valves well seated. Continue warfarin with heparin bridge as above. (8) Chronic anemia: Code(s): D64.9 - Anemia, unspecified Status: [facility], [place]
[2020-06-12] MEDS: WARFARIN (*PBKC) 4 MG TABLET PO (18:00)
[2020-06-12] MEDS: ALBUTEROL SULFATE (*SP) AEROSOL 1 PUFF 2 PUFF INHALATION (19:52)
[2020-06-13] VITALS: PULSE 129
[2020-06-13 04:00] VITALS: PULSE 120
[2020-06-13] MEDS: GABAPENTIN 100 MG CAPSULE PO ×2 (05:02→14:10)
[2020-06-13] MEDS: ACETAMINOPHEN 325 MG TABLET 650 MG PO (05:04)
[2020-06-13 06:00] VITALS: BP 106/74; PULSE 108; RESP 18; TEMP 36.2; O2SAT 95
[2020-06-13 06:24] LABS: Basophils Absolute Auto 0.1 K/mm3 (0.0-0.1); Basophils Percent Auto 0.8 % (0.2-1.2); Eosinophils Absolute Auto 0.8 K/mm3 (0-0.3); Eosinophils Percent Auto 6.5 % (0-4.4); Hemoglobin 10.4 g/dL (12.0-15.0); Immature Granulocyte Absolute 0.22 K/mm3 (0.00-0.031); Immature Granulocyte Percent A 1.8 % (0-0.5); Lymphocytes Absolute Auto 2.64 K/mm3 (0.9-3.2); Lymphocytes Percent Auto 21.2 % (18.3-44.2); Mean Corpuscular HGB Conc 31.5 g/dl (32-36); Mean Corpuscular Volume 88.7 fl (80-100); Mean Platelet Volume 9.3 fl (7.4-10.4); Monocytes Percent Auto 8.4 % (2.6-8.5); Neutrophils Absolute Auto 7.6 K/mm3 (1.3-6.7); Neutrophils Percent Auto 61.3 % (45.5-73.1); Platelet Count Result 452 k/mm3 (150-375); Red Blood Count 3.72 M/mm3 (4.2-5.4); Red Cell Distribution Width 15.5 % (11.5-14.5); White Blood Count 12.4 K/mm3 (4.5-10.0)
[2020-06-13 06:41] LABS: Anion Gap 8 mmol/L (8-16); Blood Urea Nitrogen 19 mg/dL (7-17); Calcium 9.4 mg/dL (8.4-10.2); Carbon Dioxide 28 mmol/L (22-30); Chloride 100 mmol/L (98-107); Estimated CRCL calculation 44 ml/min; Estimated Glomerular Filt Rate 50; Glucose 111 mg/dL (65-105); INR 2.4; Potassium 3.7 mmol/L (3.4-5.0); Prothrombin Time 26.8 Seconds (11.1-14.7); Sodium 136 mmol/L (137-145)
[2020-06-13 07:57] LABS: Partial Thromboplastin Time 103.8 SECONDS (22.3-36.8)
[2020-06-13 08:00] VITALS: PULSE 108; PULSE 114; RESP 18; O2SAT 95
[2020-06-13] MEDS: FUROSEMIDE INJ 40 MG/4 ML VIAL IV PUSH (08:11)
[2020-06-13] MEDS: PRAMIPEXOLE 0.125 MG TABLET PO (08:12)
[2020-06-13] MEDS: FLUoxetine HCL 20 MG CAPSULE 60 MG PO (08:12)
[2020-06-13] MEDS: POTASSIUM CHLORIDE 20 MEQ TABLET.ER PO (08:12)
[2020-06-13] MEDS: ROSUVASTATIN 10 MG TABLET 20 MG PO (08:12)
[2020-06-13] MEDS: LIDOCAINE 5% PATCH 1 PATCH TRANSDERM (08:13)
[2020-06-13] MEDS: clonazePAM (*CRX) 0.5 MG TABLET PO (08:15)
[2020-06-13] MEDS: ALBUTEROL SULFATE (*SP) AEROSOL 1 PUFF 2 PUFF INHALATION (08:20)
[2020-06-13] MEDS: HEPARIN SOD/D5W 100 UNITS/ML 25,000 UNITS/250 ML BAG 12 UNITS IV CONT (11:45)
[2020-06-13 12:00] VITALS: PULSE 124
[2020-06-13 14:00] VITALS: BP 111/77; PULSE 129; RESP 20; TEMP 36.7; O2SAT 92
--- NOTE | 2020-06-13 14:10 | PM.PNCARD ---
Progress Note: A&P Assessment and Plan (1) Atrial fibrillation with rapid ventricular response: Code(s): I48.91 - Unspecified atrial fibrillation Status: Acute Assessment and Plan: History of permanent atrial fibrillation. Increase diltiazem to 180 mg daily. Heart rate stable but elevated. (2) Acute on chronic diastolic CHF (congestive heart failure): Code(s): I50.33 - Acute on chronic diastolic (congestive) heart failure Status: Acute Assessment and Plan: Patient is admitted with shortness of breath and HFpEF. -Breathing much improved post thoracentesis. -DC IV Lasix. Change to Lasix 60 mg p.o. daily with potassium chloride 20 mEq daily. BMP as an outpatient in 1 week. Although not ideal, patient is adamant she would like to be discharged with only if INR is acceptable. -patient appears to be clinically fairly euvolemic at this time. Echocardiogram personally reviewed EF 55-60% prosthetic valves not well visualized although no significant regurgitation or stenosis of the aortic or mitral prosthesis. (3) History of mitral valve replacement with mechanical valve: Code(s): Z95.2 - Presence of prosthetic heart valve Status: Acute Assessment and Plan: History of remote mitral valve replacement. Keep INR 2.5-3.5. Heparin until INR 2.5 or greater. Warfarin 4 mg daily. INR 2.4 this a.m.. Check INR now stat. If INR 2.5 or greater may discontinue heparin drip and discharge home on 4 mg per evening. She must recheck INR on Sunday as an outpatient. Follow-up with Dr. Beverly in 1-2 weeks. If INR less than 2.5 increase warfarin to 5 mg this evening and recheck in a.m. as patient must remain on heparin drip overnight. (4) Pleural effusion: Code(s): J90 - Pleural effusion, not elsewhere classified Status: Acute Assessment and Plan: status post thoracentesis, improved subjective shortness of breath, aeration. Repeat chest x-ray yesterday stable. Monitor for bleeding. (5) H/O mechanical aortic valve replacement: Code(s): Z95.2 - Presence of prosthetic heart valve Status: Acute Assessment and Plan: Mechanical aortic valve replacement 03/2021. prophylactic antibiotics Follow-up echo showed good valve function (6) Hypokalemia: Code(s): E87.6 - Hypokalemia Status: Acute Assessment and Plan: Give potassium chloride 20 mEq daily at discharge. (7) Anemia: Code(s): D64.9 - Anemia, unspecified Status: Acute Assessment and Plan: Stable. Follow H&H. (8) Acute exacerbation of chronic obstructive airways disease: Code(s): J44.1 - Chronic obstructive pulmonary disease with (acute) exacerbation Status: Acute Assessment and Plan: Stable, per primary service. (9) Over-anticoagulated: Status: Acute Assessment and Plan: INR 12.9 initially Patient apparently has a history of noncompliance with Coumadin follow-up. Continue heparin until INR 2.5 or greater. Monitor for bleeding. Repeat chest x-ray. Follow H&H. Daily INRs. Compliance with INRs as directed discussed in detail. Daughter at bedside who also verbalized understanding and states she would be helping her. Subjective Date/time seen: Date of service: 06/13/20 14:10 Follow-up for atrial fibrillation, CHF Patient states she feels well. Nursing notes she has a little shaky with ambulation and PT is recommending a walker. Patient denies dizziness, significant limiting dyspnea, chest pain or palpitations. Patient states he feels well and wants to be discharged home. She denies bleeding, no new issues
[2020-06-13 14:56] LABS: INR 2.6; Prothrombin Time 28.1 Seconds (11.1-14.7)
--- NOTE | 2020-06-13 15:26 | PM.DS ---
DS: Admitting Diagnosis Admitting Diagnosis Admitting Diagnosis: Shortness of breath DS: Discharge Diagnosis Discharge Diagnosis (1) Respiratory failure with hypoxia: Code(s): J96.91 - Respiratory failure, unspecified with hypoxia Status: Acute Assessment and Plan: Secondary to left-sided pleural effusion. She is maintaining adequate O2 saturations on room air. CTA negative for PE 06/06/20. Etiology could be heart failure, pneumonia, cancer, or bleeding into the pleural space (especially given INR 13 upon presentation). She underwent thoracentesis on 06/10 yielded 400 mL bloody, dark maroon-colored fluid - doxycycline was started; pleural fluid cultures and blood cultures with NGTD. - continue heparin drip started on 06/11/20 - continue Lasix 40 mg IV b.i.d. - patient has Lopez catheter for accurate I&Os and has been diuresing well. Negative 4 L fluid balance. Remove Lopez catheter when everyone agrees (2) Pleural effusion on left: Code(s): J90 - Pleural effusion, not elsewhere classified Status: Acute Assessment and Plan: CT a/p 06/11 showed small bilateral pleural effusions, improved following thoracentesis on 06/10. Plan as above. Will need to monitor H&H, clinical symptoms and CXR to ensure that she does not rebleed into her pleural space. Repeat CXR this afternoon. (3) Current use of correction anticoagulation: Code(s): Z79.01 - residential (current) use of anticoagulants Status: Inactive Assessment and Plan: She is on warfarin due to mechanical valve. INR supratherapeutic at 13 on admission, which improved following holding warfarin. Now INR is subtherapeutic at 2.1. She needs to be above 2.5 due to her mechanical valves. Continue with heparin drip. This can be discontinued when INR is >2.5 Continue warfarin 4 mg daily Patient will receive twice weekly INR checks on Tuesdays and upon discharge. This has been arranged with care coordination. Cardiology following and input appreciated. (4) Persistent atrial fibrillation: Code(s): I48.19 - Other persistent atrial fibrillation Status: Acute Assessment and Plan: rate is fairly well controlled, mostly hovering around 100. She does have increases up to 130, especially with activity Continue diltiazem Appreciate cardiology input. Discussed case with Dr. Chase. Based on her blood pressures, there is not room to increase her diltiazem at this time. Will monitor her heart rate closely. Continue telemetry. Continue warfarin as above (5) Acute on chronic diastolic CHF (congestive heart failure): Code(s): I50.33 - Acute on chronic diastolic (congestive) heart failure Status: Acute Assessment and Plan: Post-thoracentesis showing findings consistent with CHF exacerbation. CT a/p showed findings consistent with CHF including cardiomegaly, mild pulmonary edema, and small bilateral pleural effusions. Continue IV Lasix as above monitor daily weights, intake and output. Continue heart healthy diet. Appreciate cardiology input repeat chest x-ray this afternoon. Based on results, can consider transition to p.o. diuretic per Cardiology (6) Chronic obstructive pulmonary disease: Code(s): J44.9 - Chronic obstructive pulmonary disease, unspecified Status: Inactive Assessment and Plan: does not appear to be in acute exacerbation. No wheezing noted on exam. Maintaining adequate O2 sats on room air. Albuterol MDI b.i.d. scheduled (7) Valvular heart disease: Code(s): I38 - Endocarditis, valve unspecified Status: Inactive Assessment and Plan: Patient had mitral valve prolapse status post mechanical mitral valve replacement in the 1991. She also had aortic stenosis status post aortic valve replacement in March 2020. Echo showing valves well seated. Continue warfarin with heparin bridge as abo
[2020-06-13 18:44] LABS: Amylase, Pleural Fluid 19 U/L
[2020-06-13 22:06] LABS: Glucose Pleural Fluid 39 mg/dL; LDH Pleural Fluid 652 U/L
[2020-06-15 07:42] LABS: Albumin Pleural Fluid 2.4 g/dL
== END 2020-06-13 16:15 | disposition home or self-care (01) | DRG 194 ==
LOC: ANHED 14:23 → ANH3MEDSUR 16:12
PROVIDERS: Internal Medicine; Internal Medicine Cardiovascular Disease; Physician Assistant; Admitting Provider Family Medicine; Emergency Provider Emergency Medicine; PCP Physician Assistant; Visit Provider Physician Assistant
DX: I11.0 Hypertensive heart disease with heart failure (principal); J44.1 Chronic obstructive pulmonary disease with (acute) exacerbation; I48.91 Unspecified atrial fibrillation; J96.91 Respiratory failure, unspecified with hypoxia; J90 Pleural effusion, not elsewhere classified; F31.9 Bipolar disorder, unspecified; I50.33 Acute on chronic diastolic (congestive) heart failure; E87.6 Hypokalemia; D64.9 Anemia, unspecified; Z95.2 Presence of prosthetic heart valve; F41.9 Anxiety disorder, unspecified; R59.0 Localized enlarged lymph nodes
CPT/HCPCS: 32555; 36415; 36430; 36600; 71045; 71046; 71275; 74177; 80048; 80053; 81001; 82040; 82042; 82150; 82607; 82728; 82746; 82805; 82945; 83010; 83036; 83540; 83550; 83615; 83735; 83880; 83986; 84100; 84132; 84155; 84157; 84443; 84484; 84550; 85014; 85018; 85025; 85610; 85730; 86140; 86860; 86870; 86880; 86900; 86901; 87040; 87070; 87075; 87205; 88104; 88108; 88184; 88305; 89051; 93005; 93306; 94640; 96372; 96374; 96375; 96376; 97161; 97165; 99285; A9270; G0378; G0379; J1644; J1650; J1940; J2930; J7050; P9017; Q9967